=== PATIENT | female | born 1935 | race African-American/Black ===

== ENCOUNTER 2022-07-09 13:53 | Inpatient (IN) | payer MEDICARE, MEDICAID, SELFPAY ==
[2022-07-09] VITALS (26 sets, daily range): BP systolic 87–110; BP diastolic 46–77; PULSE 69–124; RESP 19–24; TEMP 36.2–37.6; O2SAT 93–100
--- NOTE | ~2022-07-09 | CT_ITS ---
EXAMINATION: CT abdomen pelvis w con DATE: 07/09/2022 16:01 INDICATION: Abdominal pain. TECHNIQUE: Computed tomography (CT) of the abdomen and pelvis was performed with 100 mL Omnipaque 350 intravenous contrast. Automated exposure control and iterative reconstruction technique were employe d. The dose-length product was 1363.43 mGy-cm. COMPARISON: None. FINDINGS: The visualized portions of the lung bases demonstrate mild atelectasis. 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 No pleural effusion. Cardiomegaly is noted. No pericardial effusion. There is mild intrahepatic biliary duct dilatation, likely secondary to cholecystectomy. The spleen, pancreas, and adrenal glands are normal. There is cortical thinning of the kidneys. There are cysts in the kidneys measuring up to 7 mm on the right. There is diffuse wall thickening of the colon, cons istent with colitis. The appendix is not visualized. There is an umbilical hernia containing nonobstr ucted small bowel. There is a left inguinal hernia containing fat. Aortic atherosclerosis is noted. T here are no pathologically enlarged lymph nodes. There is trace pelvic ascites. There is severe thora cic and lumbar spondylosis. IMPRESSION: 1. Pancolitis. 2. Umbilical hernia containing nonobstructed small bowel. Reviewed, dictated and finalized at location A.
--- NOTE | ~2022-07-09 | XR_ITS ---
Portable chest x-ray Comparison: 07/09/2022 Clinical History: PICC line placement Findings: Left-sided PICC line present, tip in the SVC. Lungs remain clear. Cardiomediastinal silho uette is stable. Bones and soft tissues are unremarkable. Impression: Left-sided PICC line in satisfactory position. Clear lungs. Reviewed, dictated and finalized at location . Impression: Left-sided PICC line in satisfactory position. Clear lungs.
--- NOTE | ~2022-07-09 | XR_ITS ---
EXAMINATION: XR chest 1V portable DATE: 07/09/2022 14:34 INDICATION: Weakness. TECHNIQUE: A single frontal view of the chest was obtained. COMPARISON: None. FINDINGS: A calcified right lung nodule is consistent with old granulomatous disease. No pneumonia, p leural effusion, or pneumothorax. The heart size is normal. IMPRESSION: 1. No acute cardiopulmonary disease. Reviewed, dictated and finalized at location A.
--- NOTE | ~2022-07-09 | XR_ITS ---
XR chest 1V portable DATE: 07/11/2022 13:58 INDICATION: Tachypnea TECHNIQUE: Portable AP chest on 07/11/2022 at 1353 hours COMPARISON: portable AP chest at 2058 hours FINDINGS: Normal heart size. Aortic arch calcification, mild aortic unfolding. No hilar or mediastina l enlargement. No pulmonary infiltrate or consolidation, pleural effusion or pulmonary vascular congestion or pneumo thorax. Left upper extremity PIC catheter tip overlies the proximal superior cavoatrial location. Diffuse idiopathic skeletal hyperostosis of the thoracic spine. IMPRESSION: No active cardiopulmonary disease Aortic calcification Left upper extremity PIC catheter Reviewed, dictated and finalized at location A.
--- NOTE | 2022-07-09 14:11 | ECG_ITS ---
Measurements Intervals [place] Rate: 101 P: SD: 0 QRS: -15 QRSD: 109 T: 26 QT: 332 QTc: 430 Interpretive Statements ATRIAL FIBRILLATION WITH RAPID VENTRICULAR RESPONSE WITH ABERRANT CONDUCTION OR VENTRICULAR PREMATURE COMPLEXES INCOMPLETE RIGHT BUNDLE BRANCH BLOCK [90+ ms QRS DURATION, TERMINAL R IN V1/V2, 40+ ms S IN I/aVL/V4/V5/V6] NONSPECIFIC ST & T-WAVE ABNORMALITY ABNORMAL RHYTHM ECG NO PREVIOUS ECG AVAILABLE FOR COMPARISON Electronically Signed On 07-09-2022 15:29:42 CDT by Jasmin Dillon M.D.
[2022-07-09] MEDS: SODIUM CHLORIDE 0.9% IV 2,000 ML 999 ML (14:22)
--- NOTE | 2022-07-09 14:22 | PC.NURSE ---
farias catheter from [facility] was switched out on arrival per Mildred HARRISON.
--- NOTE | 2022-07-09 14:24 | PC.NURSE ---
Addendum entered by Soni Shaw RN 07/09/22 16:02: 2 liters normal saline started Original Note: Normal saline bolus started per MD Iverson.
[2022-07-09 14:45] LABS: Hematocrit 33.9 % (37.0-47.0); Hemoglobin 10.5 g/dL (12.0-15.0); Mean Corpuscular Hemoglobin 31.5 pg (26-34); Mean Corpuscular Volume 101.8 fl (80-100); Platelet Count Result 477 k/mm3 (150-375); Red Blood Count 3.33 M/mm3 (4.2-5.4); Red Cell Distribution Width 15.4 % (11.5-14.5); White Blood Count 11.6 K/mm3 (4.5-10.0)
[2022-07-09 15:03] LABS: Alanine Aminotransferase 15 U/L (6-35); Albumin Level 3.1 g/dL (3.5-5.1); Alkaline Phosphatase 75 U/L (38-126); Anion Gap 13 mmol/L (8-16); Aspartate Amino Transferase 20 U/L (14-36); Bilirubin,Total 0.8 mg/dL (0.2-1.3); Blood Urea Nitrogen 17 mg/dL (7-17); Calcium 8.3 mg/dL (8.4-10.2); Carbon Dioxide 21 mmol/L (22-30); Chloride 101 mmol/L (98-107); Estimated Glomerular Filt Rate 47; Glucose 137 mg/dL (65-110); Potassium 2.2 mmol/L (3.4-5.0); Sodium 135 mmol/L (137-145)
--- NOTE | 2022-07-09 15:07 | ED.RECABL ---
HPI - Recheck/Abnormal Lab/Rx General Chief Complaint: Recheck/Abnormal Lab/Rx Stated Complaint: low potassium Time Seen by Provider: 07/09/22 15:05 Source: EMS Mode of arrival: EMS Limitations: dementia History of Present Illness HPI narrative: 86 years old -[place] female [facility] with potassium 2.2. The [facility] report that patient not eating or drinking over the last 2 to 3 days for no reason. Her daughter mentioned that the patient been having diarrhea similar to her previous history of C. difficile for the last 5 days. And the patient oriented to her name only and that is her baseline. Related Data Allergies Allergy/AdvReac Type Severity Reaction Status Date / Time acetaminophen [From [place]] Allergy Unknown Verified 07/09/22 14:13 codeine Allergy Unknown Verified 07/09/22 14:13 ferrous sulfate Allergy Unknown Verified 07/09/22 14:13 hydrocodone [From [place]] Allergy Unknown Verified 07/09/22 14:13 piroxicam Allergy Unknown Verified 07/09/22 14:13 rofecoxib Allergy Unknown Verified 07/09/22 14:13 sertraline [From [place]] Allergy Unknown Verified 07/09/22 14:13 Review of Systems Review of Systems: ROS unobtainable: Yes unobtainable due to medical condition and unobtainable due to mental status Exam Narrative: General appearance: Well-developed, well-nourished Skin: Normal color Head: Normocephalic, nontraumatic Eyes: Clear conjunctiva ENT: Oropharynx normal, ears normal, nose normal Neck: Supple, nontender Chest and respiratory: Airway patent, no respiratory distress, no accessory muscle use Heart: Irregular irregularity Abdomen: Soft, nontender, no organomegaly, quiet bowel sounds Vascular: Normal peripheral pulses, normal capillary refill. Neurologic: Alert and oriented to her name only Course Reevaluation(s) Reevaluation #1: No new changes compared to on arrival to the ED does not look in pain or distress Date: 07/09/22 Time: 15:16 Vital Signs Vital signs: Vital Signs Temperature 37.6 C 07/09/22 13:51 Pulse Rate 97 07/09/22 13:51 Respiratory Rate 21 H 07/09/22 13:51 Pulse Oximetry 99 07/09/22 13:51 Oxygen Delivery Room Air 07/09/22 13:51 Temperature 37.6 C 07/09/22 13:51 Pulse Rate 116 H 07/09/22 16:41 Respiratory Rate 19 07/09/22 16:41 Blood Pressure 104/69 07/09/22 16:41 Pulse Oximetry 100 07/09/22 16:41 Oxygen Delivery Room Air 07/09/22 13:51 MDM - Recheck/Abnormal Lab/Rx MDM Narrative Medical decision making narrative: Patient came [facility] with not eating or drinking for 8 days, diarrhea 4 days, oriented to her name only, usually go to [facility], DNR. Differential diagnosis include electrolyte imbalance, dehydration, C. difficile, sepsis, urinary tract infection Physical examination showed that the patient soiled in stool and urine with very poor hygienic condition at the pelvic area. Work-up today showed elevated white count of 11.6, potassium of 2.2, creatinine of 1.3, lactic acid 2.6, urine analysis showed urinary tract infection, chest x-ray showed no acute abnormalities, CT abdomen and pelvis with IV contrast showed pancolitis. C. difficile is a possibility, C. difficile toxigenic test ordered, patient received vancomycin 125 mg orally, FIDAXOMICIN 200 mg, Rocephin 1 g IV, potassium 40 mEq orally and IV, IV fluid of normal saline x3 L Differential Diagnosis Differential diagnosis: Likely other (Electrolyte imbalance, C. difficile, dehydration, urinary tract infection) Lab Data 07/09/22 14:24 07/09/22 14:24 Labs: Lab Results 07/09/22 07/09/22 07/09/22 Range/Units 14:24 16:15 17:
[2022-07-09 15:25] LABS: Band Neutrophils Percent 18 % (0-6); Eosinophils Absolute Manual 0.11 K/mm3 (0.02-0.5); Eosinophils Percent Manual 1 % (0-4); Lymphocytes Absolute Manual 0.69 K/mm3 (1.1-4.5); Monocytes Absolute Manual 0.46 K/mm3 (0.1-0.90); Monocytes Percent Manual 4 % (3-9); Neutrophils Absolute Manual 10.32 K/mm3 (1.7-7.2); Neutrophils Percent Manual 71 % (46-73); Total Cells Counted 100
[2022-07-09 15:26] LABS: Anisocytosis 2+ (NORMAL); Platelet Estimate Increased (Adequate); Schistocytes None Seen (NORMAL)
[2022-07-09 15:27] LABS: Hypochromasia 1+ (NORMAL)
[2022-07-09 15:29] LABS: Magnesium 1.7 mg/dL (1.6-2.3)
[2022-07-09] MEDS: POTASSIUM CHLORIDE INJ 40 MEQ in SODIUM CHLORIDE 0.9% IV 500 ML 130 MEQ IVPB ×2 (15:34→22:52)
[2022-07-09] MEDS: POTASSIUM CHLORIDE 20 MEQ TABLET 40 MEQ PO ×2 (15:38→22:37)
[2022-07-09] MEDS: SODIUM CHLORIDE 0.9% IV 1,000 ML 999 ML IV CONT (16:12)
[2022-07-09 16:55] LABS: Appearance Urine Cloudy (Clear); Bacteria Urine 2+ /hpf; Bilirubin Urine Negative (Negative); Blood Urine 2+ (Negative); Color Urine Yellow (Yellow); Glucose Urine UA Negative (Negative); Hyaline Casts Urine Present /lpf; Ketones Urine Negative (Negative); Leukocyte Esterase Ur 3+ LEU/UL (Negative); Nitrate Urine Negative (Negative); Non Pathogenic Casts >20; Protein Urine 1+ mg/dL (Negative); Specific Grav Ur 1.028 (1.001-1.035); Squamous Epithelial Cell Urine None seen /hpf (Few); Urobilinogen Urine 0.2 mg/dL (<2.0); WBC Urine 51-100 /hpf; pH Urine 5.5 (5.0-9.0)
[2022-07-09 17:00] LABS: Add Urine Microscopic? YES
[2022-07-09 17:28] LABS: Lactic Acid Reflex 2.6 mmol/L (0.7-2.0)
--- NOTE | 2022-07-09 18:19 | PC.NURSE ---
Patient got a total of 3200ml of normal saline. given part as override medications and part per order. Verified per RN Jania.
--- NOTE | 2022-07-09 18:26 | PM.IMHP ---
H&P: HPI History of Present Illness Date/Time: 07/09/22 18:26 Chief Complaint: Low potassium Narrative: this is an 86-year-old female patient who came from a local care home and [facility] The patient came to the emergency room today because she has not been eating or drinking very much over the last 2-3 days. The patient has been having diarrhea for last 5 days. The stools were comparable to the once the patient had when she had C diff. the patient is only orientated to herself. The daughter is at the bedside answering questions for Her. Her white count was noted to be 11.6. H&H is 10.5 and 33.9. MCV is 101.8. Her platelet count 477. Band neutrophils 18. Her sodium was 135 potassium 2.2. Creatinine 1.3. GFR is 47. Lactic acid was 2.6 and 2.2. The patient was found to be positive for UTI. The patient was found to be positive for C diff. The patient was started on Rocephin and Dificid. Initially the patient had been on Flagyl. The patient was started on IV fluids. She was replaced with potassium repeat potassium was nearly the same 2.4. Patient's CT scan was read as a following Pancolitis. 2. Umbilical hernia containing nonobstructed small bowel. the patient is being admitted to inpatient status on the date of service of 07/09/2022. Review of Systems Review of Systems: All systems reviewed & are unremarkable except as noted in HPI and below Constitutional: Constitutional: Reports as per HPI and Reports no additional constitutional complaints Eyes: Eyes: Reports as per HPI and Reports no additional eye complaints ENT: Reports system reviewed and no additional complaints, except as documented and Reports Normal hearing present Cardiovascular: Cardiovascular: Reports no additional cardiovascular complaints Respiratory: Respiratory: Reports no additional respiratory complaints and Reports no additional respiratory complaints Gastrointestinal: Gastrointestinal: Reports as per HPI and Reports no additional gastrointestinal complaints Musculoskeletal: Musculoskeletal: Reports no additional musculoskeletal complaints Integumentary/Breasts: Skin/Breast: Reports system reviewed and no additional complaints, except as docu and Reports as per HPI Neurologic: Reports system reviewed and no additional complaints, except as documented, Reports as per HPI and Reports Normal hearing present Psychiatric: Psychiatric: Reports no additional psychiatric complaints and Reports as per HPI Endocrine: Endocrine: Reports no additional endocrine complaints Hematologic/Lymphatic: Hematologic/Lymphatic: Reports no additional hematologic/lymphatic complaints Allergic/Immunologic: Allergic/Immunologic: Reports no additional allergic/immunologic complaints [facility] Past Medical History Medical History Anemia Atrial fibrillation BPV (benign positional vertigo) Breast cancer CHF (congestive heart failure), NYHA class I Chronic GERD CVA (cerebral vascular accident) Depression with anxiety Hyperlipidemia Hypothyroidism Surgical History Surgical History H/O mastectomy right breast H/O: hysterectomy History of appendectomy History of bilateral knee replacement Hx of cataract surgery Hx of cholecystectomy Family History Family History Mother Hypertension Father Hypertension Sibling Hypertension Daughter No problems noted. Social History Social History (Updated 07/10/22 @ 02:34 by Karla Lafleur NP) Social History: The patient recently moved into [facility]. she is and he lives there at the care home as well. She has had 6 children . 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
[2022-07-09] MEDS: SODIUM CHLORIDE 0.9% IV 1,000 ML 200 ML IV CONT (18:44)
[2022-07-09] MEDS: metroNIDAZOLE 500 MG/ISO 100ML 500 MG/100 ML BAG 100 MG IVPB (18:48)
[2022-07-09] MEDS: ACETAMINOPHEN 325 MG TABLET 650 MG PO (18:49)
--- NOTE | 2022-07-09 20:09 | ADMGEN ---
This patient, Carli Hamilton, was admitted to Medical Room 246-01. Patient/family oriented to hospital policies and general routines including ID bracelet, bed and alarms, visiting hours, pain management, procedures, bathroom and other care routines, personal items, smoking policy, room service/diet, and visiting hours. Information on how to activate the Rapid Response Team has been discussed. Patient/Family are encouraged to report perceived risks to care and to ask questions if they do not understand what they are told or what they should do.
[2022-07-09 20:12] LABS: Reflex Lactic Acid Yes or No Add Lactic
[2022-07-09 21:42] LABS: Toxigenic C. Diff POSITIVE (NEGATIVE)
[2022-07-09 21:43] LABS: Lactic Acid 2.2 mmol/L (0.7-2.0)
[2022-07-09 21:55] LABS: Anion Gap 14 mmol/L (8-16); Blood Urea Nitrogen 16 mg/dL (7-17); Calcium 7.6 mg/dL (8.4-10.2); Carbon Dioxide 14 mmol/L (22-30); Chloride 107 mmol/L (98-107); Estimated CRCL calculation 34 ml/min; Estimated Glomerular Filt Rate 47; Glucose 118 mg/dL (65-110); Potassium 2.4 mmol/L (3.4-5.0); Sodium 135 mmol/L (137-145)
[2022-07-09] MEDS: FIDAXOMICIN 200 MG TABLET PO (22:36)
[2022-07-10] VITALS (16 sets, daily range): BP systolic 90–128; BP diastolic 48–75; PULSE 66–138; RESP 16–20; TEMP 35.9–36.2; O2SAT 93–96
[2022-07-10] MEDS: SODIUM CHLORIDE 0.9% IV 1,000 ML 999 ML IV CONT (04:09)
[2022-07-10] MEDS: clonazePAM (*CRX) 0.5 MG TABLET PO ×2 (05:32→21:03)
[2022-07-10] MEDS: LEVOTHYROXINE SODIUM 50 MCG TABLET PO (05:32)
[2022-07-10 08:34] LABS: Hematocrit 34.6 % (37.0-47.0); Hemoglobin 10.5 g/dL (12.0-15.0); Mean Corpuscular HGB Conc 30.3 g/dl (32-36); Mean Corpuscular Hemoglobin 31.6 pg (26-34); Mean Corpuscular Volume 104.2 fl (80-100); Mean Platelet Volume 8.8 fl (7.4-10.4); Platelet Count Result 476 k/mm3 (150-375); Red Blood Count 3.32 M/mm3 (4.2-5.4); Red Cell Distribution Width 15.9 % (11.5-14.5); White Blood Count 21.9 K/mm3 (4.5-10.0)
--- NOTE | 2022-07-10 08:40 | P.PNIM_ITS ---
Progress Note: A&P Assessment and Plan (1) Sepsis: Qualifiers: Sepsis type: sepsis due to unspecified organism Sepsis acute organ dysfunction status: with acute organ dysfunction Severe sepsis acute organ dysfunction type: encephalopathy Severe sepsis shock status: without septic shock Qualified Code(s): A41.9 - Sepsis, unspecified organism; R65.20 - Severe sepsis without septic shock; G93.40 - Encephalopathy, unspecified Code(s): A41.9 - Sepsis, unspecified organism Status: Acute Assessment and Plan: Patient presented to the hospital and was noted to be tachycardic, BP 87/47, WBC 11.6-21.9, lactic acid 2.6, pancolitis evident on CT abdomen and pelvis and UA is concerning for UTI. Patient meets criteria for sepsis. * Patient given approximately 3 L of IV fluids in the ED and continued on maintenance fluids * Monitor hemodynamics * Continue antibiotics for C diff colitis and UTI * Repeat lactic acid 2.2 * Monitor CBC and temperature curve (2) C. difficile colitis: Code(s): A04.72 - Enterocolitis due to Clostridium difficile, not specified as recurrent Status: Acute Assessment and Plan: Patient presented to the emergency department for evaluation diarrhea x5 days. Patient has history of C diff colitis in April of this year and was treated with 10 days of vancomycin. * CT abdomen and pelvis on admission showed pancolitis. * C diff was positive * Initiated on dificid 200 mg p.o. b.i.d. times 10 days, 1st dose 6/2 at 10:00 p.m. * Contact isolation * Continue IV fluids and supplement electrolytes as needed * Monitor intake and output (3) Atrial fibrillation: Qualifiers: Atrial fibrillation type: persistent (not longstanding) Qualified Code(s): I48.19 - Other persistent atrial fibrillation Code(s): I48.91 - Unspecified atrial fibrillation Status: Acute Assessment and Plan: Patient reportedly diagnosed with AFib approximately 1 month ago. She is typically rate controlled off medications. * Patient is noted to be in AFib with heart rate 100 to 120s, she has nonsustained heart rate up to 130s with activity. I suspect this may be secondary to sepsis. * Monitor telemetry. * Add p.r.n. metoprolol 5 mg IV q.6 hours for sustained heart rate greater than 130s. * Monitor patient's volume status and prevent hyper or hypovolemia. * Obtain patient's records from [facility] from most recent hospitalization. Family reports patient had an echocardiogram recently and were told by her product representative her heart muscle was strong * Consider consulting Cardiology if heart rate remains elevated despite adequate infection control * Continue Eliquis (4) ARF (acute renal failure): Qualifiers: Acute renal failure type: unspecified Qualified Code(s): N17.9 - Acute kidney failure, unspecified Code(s): N17.9 - Acute kidney failure, unspecified Status: Acute Assessment and Plan: Acute versus acute on chronic kidney disease. BUN 17, creatinine 1.3, GFR 47 on admission. * Patient has had diarrhea for approximately 5 days with poor oral intake and this is likely pre renal * hold Diamox and Lasix * Continue gentle IV hydration. * He monitor intake and output and avoid hypervolemia * Daily BMP (5) Acute hypokalemia: Code(s): E87.6 - Hypokalemia Status: Acute Assessment and Plan: Potassium was 2.2 on admission and patient given 40 mEq p.o. KCl and 40 mEq IV KCl in the ED. * Repeat potassium 2.4 later that evening. And she was given additional dose o
--- NOTE | 2022-07-10 08:40 | PM.IMPN ---
Progress Note: A&P Assessment and Plan (1) Sepsis: Qualifiers: Sepsis type: sepsis due to unspecified organism Sepsis acute organ dysfunction status: with acute organ dysfunction Severe sepsis acute organ dysfunction type: encephalopathy Severe sepsis shock status: without septic shock Qualified Code(s): A41.9 - Sepsis, unspecified organism; R65.20 - Severe sepsis without septic shock; G93.40 - Encephalopathy, unspecified Code(s): A41.9 - Sepsis, unspecified organism Status: Acute Assessment and Plan: Patient presented to the hospital and was noted to be tachycardic, BP 87/47, WBC 11.6-21.9, lactic acid 2.6, pancolitis evident on CT abdomen and pelvis and UA is concerning for UTI. Patient meets criteria for sepsis. Patient given approximately 3 L of IV fluids in the ED and continued on maintenance fluids Monitor hemodynamics Continue antibiotics for C diff colitis and UTI Repeat lactic acid 2.2 Monitor CBC and temperature curve (2) C. difficile colitis: Code(s): A04.72 - Enterocolitis due to Clostridium difficile, not specified as recurrent Status: Acute Assessment and Plan: Patient presented to the emergency department for evaluation diarrhea x5 days. Patient has history of C diff colitis in April of this year and was treated with [address] abdomen and pelvis on admission showed pancolitis. C diff was positive Initiated on dificid 200 mg p.o. b.i.d. times 10 days, 1st dose 6/2 at 10:00 p.m. Contact isolation Continue IV fluids and supplement electrolytes as needed Monitor intake and output (3) Atrial fibrillation: Qualifiers: Atrial fibrillation type: persistent (not longstanding) Qualified Code(s): I48.19 - Other persistent atrial fibrillation Code(s): I48.91 - Unspecified atrial fibrillation Status: Acute Assessment and Plan: Patient reportedly diagnosed with AFib approximately 1 month ago. She is typically rate controlled off medications. Patient is noted to be in AFib with heart rate 100 to 120s, she has nonsustained heart rate up to 130s with activity. I suspect this may be secondary to sepsis. Monitor telemetry. Add p.r.n. metoprolol 5 mg IV q.6 hours for sustained heart rate greater than 130s. Monitor patient's volume status and prevent hyper or hypovolemia. Obtain patient's records from [facility] from most recent hospitalization. Family reports patient had an echocardiogram recently and were told by her assistant research scientist her heart muscle was strong Consider consulting Cardiology if heart rate remains elevated despite adequate infection control Continue Eliquis (4) ARF (acute renal failure): Qualifiers: Acute renal failure type: unspecified Qualified Code(s): N17.9 - Acute kidney failure, unspecified Code(s): N17.9 - Acute kidney failure, unspecified Status: Acute Assessment and Plan: Acute versus acute on chronic kidney disease. BUN 17, creatinine 1.3, GFR 47 on admission. Patient has had diarrhea for approximately 5 days with poor oral intake and this is likely pre renal hold Diamox and Lasix Continue gentle IV hydration. He monitor intake and output and avoid hypervolemia Daily BMP (5) Acute hypokalemia: Code(s): E87.6 - Hypokalemia Status: Acute Assessment and Plan: Potassium was 2.2 on admission and patient given 40 mEq p.o. KCl and 40 mEq IV KCl in the ED. Repeat potassium 2.4 later that evening. And she was given additional dose of KCl 40 mEq p.o. and 40 mEq IV yesterday evening. Patient started on a potassium supplement 40 mEq use p.o. b.i.d. /3 magnesium level 1.5 and supplemented with IV Mag sulfate 3 g x 1. Potassium 4.2 today Monitor telemetry Continue electrolytes and supplement as needed (6) UTI (urinary tract infection): Code(s): N39.0 - Urinary tract infection, site not specified Sta
[2022-07-10 09:01] LABS: Alanine Aminotransferase 14 U/L (6-35); Albumin Level 2.3 g/dL (3.5-5.1); Alkaline Phosphatase 55 U/L (38-126); Anion Gap 9 mmol/L (8-16); Aspartate Amino Transferase 20 U/L (14-36); Bilirubin,Total 0.7 mg/dL (0.2-1.3); Blood Urea Nitrogen 18 mg/dL (7-17); Calcium 7.7 mg/dL (8.4-10.2); Carbon Dioxide 17 mmol/L (22-30); Chloride 112 mmol/L (98-107); Estimated CRCL calculation 31 ml/min; Estimated Glomerular Filt Rate 43; Glucose 100 mg/dL (65-110); Magnesium 1.5 mg/dL (1.6-2.3); Potassium 4.2 mmol/L (3.4-5.0); Sodium 138 mmol/L (137-145)
[2022-07-10] MEDS: FERROUS SULFATE 324 MG TABLET PO ×2 (10:03→17:18)
[2022-07-10] MEDS: ATORVASTATIN 20 MG TABLET PO (10:03)
[2022-07-10] MEDS: POTASSIUM CHLORIDE 20 MEQ TABLET.ER 40 MEQ PO ×2 (10:03→17:18)
[2022-07-10] MEDS: ASPIRIN 81 MG ENTERIC TABLET PO (10:03)
[2022-07-10] MEDS: APIXABAN 5 MG TABLET PO ×2 (10:03→21:05)
[2022-07-10] MEDS: ASCORBIC ACID 500 MG TABLET 1000 MG PO (10:03)
[2022-07-10] MEDS: FLUTICASONE PROPIONATE 0.05% NA SPR 16 GM BTL (*BKC) 2 SPRAY NASAL (10:04)
[2022-07-10] MEDS: CHOLECALCIFEROL 1,000 UNITS TABLET 1000 UNITS PO (10:04)
[2022-07-10] MEDS: CYANOCOBALAMIN 1,000 MCG TABLET 2000 MCG PO (10:04)
[2022-07-10] MEDS: FAMOTIDINE 20 MG/2 ML VIAL IV PUSH ×2 (10:04→21:05)
[2022-07-10] MEDS: oxyBUTYnin CHLORIDE 5 MG TABLET PO ×2 (10:04→17:17)
[2022-07-10] MEDS: CLOPIDOGREL BISULFATE 75 MG TABLET PO (10:04)
[2022-07-10] MEDS: MAGNESIUM SULFATE 3GM/D5W100ML 3 GM/100 ML BAG IVPB (10:05)
[2022-07-10] MEDS: LIDOCAINE 5% PATCH 1 PATCH TOPICAL (10:05)
[2022-07-10] MEDS: FIDAXOMICIN 200 MG TABLET PO ×2 (10:06→21:05)
[2022-07-10 11:17] LABS: Band Neutrophils Percent 48 % (0-6); Lymphocytes Absolute Manual 0.21 K/mm3 (1.1-4.5); Metamyelocytes Percent 2 %; Monocytes Absolute Manual 0.87 K/mm3 (0.1-0.90); Monocytes Percent Manual 4 % (3-9); Neutrophils Absolute Manual 20.36 K/mm3 (1.7-7.2); Neutrophils Percent Manual 45 % (46-73); Total Cells Counted 100
--- NOTE | 2022-07-10 11:18 | PC.NURSE ---
Faxed paperwork to obtain medical records from [facility].
[2022-07-10 11:19] LABS: Platelet Estimate Increased (Adequate)
[2022-07-10 11:20] LABS: Schistocytes None Seen (NORMAL); Toxic Granulation Present (NORMAL)
[2022-07-10 11:21] LABS: Burr Cells 3+ (NORMAL)
[2022-07-10] MEDS: SODIUM CHLORIDE 0.9% IV 1,000 ML 75 ML IV CONT ×2 (15:33→21:04)
[2022-07-10] MEDS: METOPROLOL TARTRATE INJ 5 MG/5 ML VIAL IV PUSH (15:33)
[2022-07-10] MEDS: ACETAMINOPHEN 325 MG TABLET 650 MG PO (21:03)
[2022-07-10] MEDS: LATANOPROST 0.005% OP SOLN 2.5 ML BTL 1 DROP EACH EYE (21:06)
[2022-07-10 22:56] LABS: Anion Gap 11 mmol/L (8-16); Blood Urea Nitrogen 23 mg/dL (7-17); Calcium 7.7 mg/dL (8.4-10.2); Carbon Dioxide 14 mmol/L (22-30); Chloride 114 mmol/L (98-107); Estimated CRCL calculation 22 ml/min; Estimated Glomerular Filt Rate 29; Glucose 128 mg/dL (65-110); Sodium 139 mmol/L (137-145)
[2022-07-10 23:53] LABS: Procalcitonin 63.2 ng/mL
[2022-07-11] VITALS (12 sets, daily range): BP systolic 101–125; BP diastolic 47–87; PULSE 50–133; RESP 16–24; TEMP 36.1–36.6; O2SAT 93–98
[2022-07-11] MEDS: LEVOTHYROXINE SODIUM 50 MCG TABLET PO (05:20)
[2022-07-11] MEDS: METOPROLOL TARTRATE INJ 5 MG/5 ML VIAL IV PUSH (05:20)
[2022-07-11] MEDS: SODIUM CHLORIDE 0.9% IV 1,000 ML 75 ML IV CONT (05:20)
[2022-07-11 05:33] LABS: Hematocrit 33.7 % (37.0-47.0); Hemoglobin 10.5 g/dL (12.0-15.0); Mean Corpuscular HGB Conc 31.2 g/dl (32-36); Mean Corpuscular Hemoglobin 31.3 pg (26-34); Mean Corpuscular Volume 100.3 fl (80-100); Mean Platelet Volume 8.7 fl (7.4-10.4); Platelet Count Result 460 k/mm3 (150-375); Red Blood Count 3.36 M/mm3 (4.2-5.4); Red Cell Distribution Width 15.9 % (11.5-14.5); White Blood Count 26.7 K/mm3 (4.5-10.0)
[2022-07-11 05:40] LABS: Alanine Aminotransferase 12 U/L (6-35); Albumin Level 2.4 g/dL (3.5-5.1); Alkaline Phosphatase 81 U/L (38-126); Anion Gap 10 mmol/L (8-16); Aspartate Amino Transferase 22 U/L (14-36); Bilirubin,Total 0.4 mg/dL (0.2-1.3); Blood Urea Nitrogen 25 mg/dL (7-17); Calcium 7.9 mg/dL (8.4-10.2); Carbon Dioxide 16 mmol/L (22-30); Chloride 116 mmol/L (98-107); Estimated CRCL calculation 20 ml/min; Estimated Glomerular Filt Rate 26; Glucose 126 mg/dL (65-110); Magnesium 2.2 mg/dL (1.6-2.3); Sodium 142 mmol/L (137-145)
[2022-07-11 05:43] LABS: NT Pro B Type Natriuretic Pept 12700 pg/mL (19.9-100)
[2022-07-11 06:10] LABS: Band Neutrophils Percent 11 % (0-6); Lymphocytes Absolute Manual 1.06 K/mm3 (1.1-4.5); Monocytes Absolute Manual 1.06 K/mm3 (0.1-0.90); Monocytes Percent Manual 4 % (3-9); Neutrophils Absolute Manual 24.56 K/mm3 (1.7-7.2); Neutrophils Percent Manual 81 % (46-73); Platelet Estimate Adequate (Adequate); Schistocytes None Seen (NORMAL); Total Cells Counted 100
[2022-07-11 06:11] LABS: Crenated RBC 1+ (NORMAL); Poikilocytosis 1+ (NORMAL)
[2022-07-11 06:36] LABS: CRP 31.1 mg/dL (<1.0)
[2022-07-11] MEDS: APIXABAN 5 MG TABLET PO ×2 (08:17→20:33)
[2022-07-11] MEDS: oxyBUTYnin CHLORIDE 5 MG TABLET PO ×2 (08:17→18:25)
[2022-07-11] MEDS: FIDAXOMICIN 200 MG TABLET PO ×2 (08:17→20:33)
[2022-07-11] MEDS: POTASSIUM CHLORIDE 20 MEQ TABLET.ER 40 MEQ PO ×2 (08:17→18:25)
[2022-07-11] MEDS: CHOLECALCIFEROL 1,000 UNITS TABLET 1000 UNITS PO (08:17)
[2022-07-11] MEDS: FAMOTIDINE 20 MG/2 ML VIAL IV PUSH ×2 (08:17→20:33)
[2022-07-11] MEDS: CYANOCOBALAMIN 1,000 MCG TABLET 2000 MCG PO (08:17)
[2022-07-11] MEDS: FERROUS SULFATE 324 MG TABLET PO ×2 (08:17→18:25)
[2022-07-11] MEDS: ATORVASTATIN 20 MG TABLET PO (08:17)
[2022-07-11] MEDS: FLUTICASONE PROPIONATE 0.05% NA SPR 16 GM BTL (*BKC) 2 SPRAY NASAL (08:17)
[2022-07-11] MEDS: ASCORBIC ACID 500 MG TABLET 1000 MG PO (08:17)
[2022-07-11] MEDS: CLOPIDOGREL BISULFATE 75 MG TABLET PO (08:17)
[2022-07-11] MEDS: ASPIRIN 81 MG ENTERIC TABLET PO (08:17)
[2022-07-11] MEDS: LIDOCAINE 5% PATCH 1 PATCH TOPICAL (08:50)
--- NOTE | 2022-07-11 09:28 | P.PNIM_ITS ---
Progress Note: A&P Assessment and Plan (1) Sepsis: Qualifiers: Sepsis acute organ dysfunction status: with acute organ dysfunction Sepsis type: sepsis due to unspecified organism Severe sepsis acute organ dysfunction type: encephalopathy Severe sepsis shock status: without septic shock Qualified Code(s): A41.9 - Sepsis, unspecified organism; R65.20 - Severe sepsis without septic shock; G93.40 - Encephalopathy, unspecified Code(s): A41.9 - Sepsis, unspecified organism Status: Acute Assessment and Plan: Patient presented to the hospital and was noted to be tachycardic, BP 87/47, WBC 11.6-21.9, lactic acid 2.6, pancolitis evident on CT abdomen and pelvis and UA is concerning for UTI. Patient meets criteria for sepsis. * Patient given approximately 3 L of IV fluids in the ED and continued on maintenance fluids * Monitor hemodynamics * Continue antibiotics for C diff colitis and UTI * Repeat lactic acid 2.2; 07/11/22 lactic acid 1.4 * Monitor CBC and temperature curve * 07/11/22 WBC 26, up from 11 on admission. Urine culture with ESBL e.coli. Antibiotics changed. SMITH present. (2) C. difficile colitis: Code(s): A04.72 - Enterocolitis due to Clostridium difficile, not specified as recurrent Status: Acute Assessment and Plan: Patient presented to the emergency department for evaluation diarrhea x5 days. Patient has history of C diff colitis in April of this year and was treated with 10 days of vancomycin. * CT abdomen and pelvis on admission showed pancolitis. * C diff was positive * Initiated dificid 200 mg p.o. b.i.d. times 10 days, 1st dose 07/09 at 10:00 p.m. * Contact isolation * Continue IV fluids and supplement electrolytes as needed * Monitor intake and output * 07/11/22 WBC 26 and patient with significant abd pain on exam. Unclear if worsening leukocytosis is from cdiff colitis versus ESBL UTI. Add Metronidazole 500 mg IV Q8 hours. (3) Atrial fibrillation: Qualifiers: Atrial fibrillation type: persistent (not longstanding) Qualified Code(s): I48.19 - Other persistent atrial fibrillation Code(s): I48.91 - Unspecified atrial fibrillation Status: Acute Assessment and Plan: Patient reportedly diagnosed with AFib approximately 1 month ago. She is typically rate controlled off medications. * Patient is noted to be in AFib with heart rate 100 to 120s, she has nonsustained heart rate up to 130s with activity. I suspect this may be secondary to sepsis. * Monitor telemetry. * Add p.r.n. metoprolol 5 mg IV q.6 hours for sustained heart rate greater than 130s. * Monitor patient's volume status and prevent hyper or hypovolemia. * Obtain patient's records from [facility] from most recent hospitalization. Family reports patient had an echocardiogram recently and were told by her automatic door mechanic her heart muscle was strong * Consider consulting Cardiology if heart rate remains elevated despite adequate infection control * Continue Eliquis * Continue to manage sepsis and acute infections. HR 100-110s (4) ARF (acute renal failure): Qualifiers: Acute renal failure type: unspecified Qualified Code(s): N17.9 - Acute kidney failure, unspecified Code(s): N17.9 - Acute kidney failure, unspecified Status: Acute Assessment and Plan: Acute versus acute on chronic kidney disease. BUN 17, creatinine 1.3, GFR 47 on admission. * Patient has had diarrhea for approximately 5 days with poor oral intake and this is likely pre renal * holding Diamox and Lasix * Treated with IV hydration. * He monitor
--- NOTE | 2022-07-11 09:28 | PM.IMPN ---
Progress Note: A&P Assessment and Plan (1) Sepsis: Qualifiers: Sepsis acute organ dysfunction status: with acute organ dysfunction Sepsis type: sepsis due to unspecified organism Severe sepsis acute organ dysfunction type: encephalopathy Severe sepsis shock status: without septic shock Qualified Code(s): A41.9 - Sepsis, unspecified organism; R65.20 - Severe sepsis without septic shock; G93.40 - Encephalopathy, unspecified Code(s): A41.9 - Sepsis, unspecified organism Status: Acute Assessment and Plan: Patient presented to the hospital and was noted to be tachycardic, BP 87/47, WBC 11.6-21.9, lactic acid 2.6, pancolitis evident on CT abdomen and pelvis and UA is concerning for UTI. Patient meets criteria for sepsis. Patient given approximately 3 L of IV fluids in the ED and continued on maintenance fluids Monitor hemodynamics Continue antibiotics for C diff colitis and UTI Repeat lactic acid 2.2; 07/11/22 lactic acid 1.4 Monitor CBC and temperature curve 07/11/22 WBC 26, up from 11 on admission. Urine culture with ESBL e.coli. Antibiotics changed. SMITH present. (2) C. difficile colitis: Code(s): A04.72 - Enterocolitis due to Clostridium difficile, not specified as recurrent Status: Acute Assessment and Plan: Patient presented to the emergency department for evaluation diarrhea x5 days. Patient has history of C diff colitis in April of this year and was treated with [address] abdomen and pelvis on admission showed pancolitis. C diff was positive Initiated dificid 200 mg p.o. b.i.d. times 10 days, 1st dose 2 at 10:00 p.m. Contact isolation Continue IV fluids and supplement electrolytes as needed Monitor intake and output 07/11/22 WBC 26 and patient with significant abd pain on exam. Unclear if worsening leukocytosis is from cdiff colitis versus ESBL UTI. Add Metronidazole 500 mg IV Q8 hours. (3) Atrial fibrillation: Qualifiers: Atrial fibrillation type: persistent (not longstanding) Qualified Code(s): I48.19 - Other persistent atrial fibrillation Code(s): I48.91 - Unspecified atrial fibrillation Status: Acute Assessment and Plan: Patient reportedly diagnosed with AFib approximately 1 month ago. She is typically rate controlled off medications. Patient is noted to be in AFib with heart rate 100 to 120s, she has nonsustained heart rate up to 130s with activity. I suspect this may be secondary to sepsis. Monitor telemetry. Add p.r.n. metoprolol 5 mg IV q.6 hours for sustained heart rate greater than 130s. Monitor patient's volume status and prevent hyper or hypovolemia. Obtain patient's records from [facility] from most recent hospitalization. Family reports patient had an echocardiogram recently and were told by her powderer her heart muscle was strong Consider consulting Cardiology if heart rate remains elevated despite adequate infection control Continue Eliquis Continue to manage sepsis and acute infections. HR 100-110s (4) ARF (acute renal failure): Qualifiers: Acute renal failure type: unspecified Qualified Code(s): N17.9 - Acute kidney failure, unspecified Code(s): N17.9 - Acute kidney failure, unspecified Status: Acute Assessment and Plan: Acute versus acute on chronic kidney disease. BUN 17, creatinine 1.3, GFR 47 on admission. Patient has had diarrhea for approximately 5 days with poor oral intake and this is likely pre renal holding Diamox and Lasix Treated with IV hydration. He monitor intake and output and avoid hypervolemia Daily BMP 07/11/22 BUN 27, creatinine 2.5, GFR 22 and with oliguria. IV contrast study given 07/09/22 and patient has multiple acute infections. ABG shows acute primary metabolic acidosis. Start bicarb drip 150 mEQ in sterile water @75 mL/hour Consult nephrology and appreciate recommendations. (5) Acute hypokalemia: Cod
[2022-07-11] MEDS: FUROSEMIDE INJ 40 MG/4 ML VIAL 20 MG IV PUSH (10:19)
--- NOTE | 2022-07-11 10:56 | PCSTNOTE ---
Bedside swallow evaluation attempted this morning. Pt. lethargic, but aroused to name and gentle touch. Pt. opened eyes briefly, but did not maintain throughout the attempted study. Pt. would provide inconsistent responses to simple questions while eyes remaining closed. She was amenable to being seated in an upright position to proceed with the study. Pt. participated in trials of thin liquids via straw without complication. She displayed a limited ability to form a labial seal for open cup thin liquid trials, which was evidenced by anterior leakage and spill. She displayed limited oral awareness during a puree trial attempt and the evaluation was terminated. Spoke with nursing regarding pt.'s limited ability to participate at this time. ST will attempt on 07/12/22 when pt. is more alert and able to participate fully in the bedside swallow evaluation.
[2022-07-11] MEDS: MEROPENEM 1 GM in SODIUM CHLORIDE 0.9% IV 100 ML 200 ML IVPB ×2 (11:57→23:00)
--- NOTE | 2022-07-11 13:15 | PC.NURSE ---
Called Sandra and left name and call back number to discuss patient condition
[2022-07-11 13:55] LABS: Alveolar/Arterial O2 Gradient 71.5 mmHg; Base Excess ABG -9.7 mEq/l (+/-2.0); Carboxyhemoglobin 0.3 % THb (0-2.0); Fractional Inspired Oxygen 32 %; HCO3 ABG 13.7 mEq/l (22.0-26.0); Methemoglobin ABG 0.4 %THb (0-1.5); Oxygen Content ABG 16.1 %vol (16.0-22.0); Oxygen Saturation ABG 98.6 % (95.0-100.0); Oxyhemoglobin 97.2 % THb (90.0-100.0); PO2 ABG 128.8 mmHg (80.0-100.0); PO2 FiO2 Ratio Arterial Blood 4.03 %; Reduced Hemoglobin 2.1 %THb (0-5.0); Total Hemoglobin 11.6 g/dL (12.0-18.0); pH ABG 7.379 (7.350-7.450)
[2022-07-11 13:57] LABS: Device NASAL CANNULA; Modified Allen's Test Pass; PCO2 ABG 23.8 mmHg (35.0-45.0); Site Drawn RIGHT RADIAL
[2022-07-11] MEDS: SODIUM CHLORIDE 0.9% IV 1,000 ML 250 ML IV CONT (13:57)
[2022-07-11] MEDS: CENTRAL LINE FLUSH 10 ML IV PUSH (13:57)
--- NOTE | 2022-07-11 14:40 | PM.CNNEP ---
Assessment and Plan Assessment and plan (1) SMITH (acute kidney injury): Code(s): N17.9 - Acute kidney failure, unspecified Status: Acute Assessment and Plan: per discussion with daughters, no reported history of renal insufficiency however, given her age and vascular disease (CVA + hyperlipidemia + CHF), she probably has some CKD at baseline (even if her creatinine is normal at baseline) multifactorial: approximately 5 days of diarrhea associated with poor oral intake likely exacerbated by ongoing use of diuretic therapy (diamox and lasix) also, contrast exposure of 6/2 (CT of abdomen) relative hypotension afib (?) check urine electrolytes, urine eosinophils, renal ultrasound, and CPK holding diuretic therapy agree with trial of IVFs given acidosis, seems reasonable to add bicarb to IVF follow repeat labs and UOP (2) Sepsis: Qualifiers: Sepsis acute organ dysfunction status: with acute organ dysfunction Sepsis type: sepsis due to unspecified organism Severe sepsis acute organ dysfunction type: encephalopathy Severe sepsis shock status: without septic shock Qualified Code(s): A41.9 - Sepsis, unspecified organism; R65.20 - Severe sepsis without septic shock; G93.40 - Encephalopathy, unspecified Code(s): A41.9 - Sepsis, unspecified organism Status: Acute Assessment and Plan: as noted on presentation -- tachycardia, hypotension, lactic acidosis, leukocytosis sources felt to be #3 and #4 better hemodynamics following IVF resuscitation lactic acid downtrending continue IVFs for now continue antibiotic therapy follow trend of hemodynamics (3) C. difficile colitis: Code(s): A04.72 - Enterocolitis due to Clostridium difficile, not specified as recurrent Status: Acute Assessment and Plan: CT abdomen and pelvis on admission showed pancolitis C diff toxin assay positive initiated dificid 200 mg p.o. b.i.d. with recent addition of metronidazole contact isolation supportive therapy (4) UTI (urinary tract infection): Code(s): N39.0 - Urinary tract infection, site not specified Status: Acute Assessment and Plan: admission UA with 3+ leukocyte esterase, WBCs, 2+ bacteria in association with dysuria urine culture with EBSL E.coli follow blood cultures on antibiotics (5) Atrial fibrillation: Qualifiers: Atrial fibrillation type: persistent (not longstanding) Qualified Code(s): I48.19 - Other persistent atrial fibrillation Code(s): I48.91 - Unspecified atrial fibrillation Status: Acute Assessment and Plan: diagnosed about a month ago continue rate control strategy on anticoagulation follow telemetry (6) Hypokalemia: Code(s): E87.6 - Hypokalemia Status: Acute Assessment and Plan: resolved follow trend of K+ levels (7) CHF (congestive heart failure): Code(s): I50.9 - Heart failure, unspecified Status: Acute Assessment and Plan: recent hospitalization for this records requested volume status stable follow respiratory status with IVFs I had a long and lengthy discussion (greater than 25 minutes) with the patient's daughter/POA by phone regarding the above issues including her acute kidney injury/acute renal failure and the testing that has been ordered as well as other interventions being done trying to get the patient's kidney function back to baseline. I will continue to follow the patient with you while she remains hospitalized and make further recommendations as deemed necessary. Thank you for allowing me to participate in the care this patient. History of Present Illness Reason for Consult Consult date: 07/11/22 Reason for consult: acute renal failure Chief Complaint Chief complaint: pancolitis, hypokalemia, diarrhea, uti History of Present Illness Narrative: Most of the information that I have obtained is f
--- NOTE | 2022-07-11 14:40 | P.CONNP_ITS ---
Assessment and Plan Assessment and plan (1) SMITH (acute kidney injury): Code(s): N17.9 - Acute kidney failure, unspecified Status: Acute Assessment and Plan: * per discussion with daughters, no reported history of renal insufficiency * however, given her age and vascular disease (CVA + hyperlipidemia + CHF), she probably has some CKD at baseline (even if her creatinine is normal at baseline) * multifactorial: * approximately 5 days of diarrhea * associated with poor oral intake * likely exacerbated by ongoing use of diuretic therapy (diamox and lasix) * also, contrast exposure of 07/09 (CT of abdomen) * relative hypotension * afib (?) * check urine electrolytes, urine eosinophils, renal ultrasound, and CPK * holding diuretic therapy * agree with trial of IVFs * given acidosis, seems reasonable to add bicarb to IVF * follow repeat labs and UOP (2) Sepsis: Qualifiers: Sepsis acute organ dysfunction status: with acute organ dysfunction Sepsis type: sepsis due to unspecified organism Severe sepsis acute organ dysfunction type: encephalopathy Severe sepsis shock status: without septic shock Qualified Code(s): A41.9 - Sepsis, unspecified organism; R65.20 - Severe sepsis without septic shock; G93.40 - Encephalopathy, unspecified Code(s): A41.9 - Sepsis, unspecified organism Status: Acute Assessment and Plan: * as noted on presentation -- tachycardia, hypotension, lactic acidosis, leukocytosis * sources felt to be #3 and #4 * better hemodynamics following IVF resuscitation * lactic acid downtrending * continue IVFs for now * continue antibiotic therapy * follow trend of hemodynamics (3) C. difficile colitis: Code(s): A04.72 - Enterocolitis due to Clostridium difficile, not specified as recurrent Status: Acute Assessment and Plan: * CT abdomen and pelvis on admission showed pancolitis * C diff toxin assay positive * initiated dificid 200 mg p.o. b.i.d. with recent addition of metronidazole * contact isolation * supportive therapy (4) UTI (urinary tract infection): Code(s): N39.0 - Urinary tract infection, site not specified Status: Acute Assessment and Plan: * admission UA with 3+ leukocyte esterase, WBCs, 2+ bacteria in association with dysuria * urine culture with EBSL E.coli * follow blood cultures * on antibiotics (5) Atrial fibrillation: Qualifiers: Atrial fibrillation type: persistent (not longstanding) Qualified Code(s): I48.19 - Other persistent atrial fibrillation Code(s): I48.91 - Unspecified atrial fibrillation Status: Acute Assessment and Plan: * diagnosed about a month ago * continue rate control strategy * on anticoagulation * follow telemetry (6) Hypokalemia: Code(s): E87.6 - Hypokalemia Status: Acute Assessment and Plan: * resolved * follow trend of K+ levels (7) CHF (congestive heart failure): Code(s): I50.9 - Heart failure, unspecified Status: Acute Assessment and Plan: * recent hospitalization for this * records requested * volume status stable * follow respiratory status with IVFs I had a long and lengthy discussion (greater than 25 minutes) with the patient's daughter/POA by phone regarding the above issues including her acute kidney injury/acute renal failure and the testing that has been ordered as well as other interventions being done trying to get the patient's kidney function back to baseline. I will con
[2022-07-11 15:15] LABS: Alanine Aminotransferase 12 U/L (6-35); Albumin Level 2.4 g/dL (3.5-5.1); Alkaline Phosphatase 96 U/L (38-126); Anion Gap 10 mmol/L (8-16); Aspartate Amino Transferase 15 U/L (14-36); Bilirubin,Total 0.4 mg/dL (0.2-1.3); Blood Urea Nitrogen 27 mg/dL (7-17); Carbon Dioxide 16 mmol/L (22-30); Chloride 117 mmol/L (98-107); Estimated CRCL calculation 17 ml/min; Estimated Glomerular Filt Rate 22; Glucose 114 mg/dL (65-110); Lactic Acid Reflex 1.4 mmol/L (0.7-2.0); Potassium 3.9 mmol/L (3.4-5.0); Sodium 143 mmol/L (137-145)
[2022-07-11] MEDS: SODIUM BICARBONATE 8.4% 150 MEQ in WATER, STERILE FOR INJECTION 950 ML 75 MEQ IV CONT (16:16)
[2022-07-11 17:37] LABS: Creatinine Urine 155.1 mg/dL; Creatinine Urine 155.5 mg/dL; Total Protein Urine Random 34 mg/dL; Ur Ttl Prot Creatinine Ratio 0.22 mg/mg (0-0.20); Urea Random Urine 120 MG/DL
[2022-07-11 17:53] LABS: Eosinophil Urine None Seen % (None Seen); Urine Eos QC 2nd Tech Confirmed
[2022-07-11] MEDS: metroNIDAZOLE 500 MG/ISO 100ML 500 MG/100 ML BAG 100 MG IVPB (18:24)
[2022-07-11] MEDS: ACETAMINOPHEN 325 MG TABLET 650 MG PO (18:36)
[2022-07-11 19:30] LABS: Sodium Urine Random 9 meq/L
[2022-07-11] MEDS: LATANOPROST 0.005% OP SOLN 2.5 ML BTL 1 DROP EACH EYE (20:33)
[2022-07-11] MEDS: clonazePAM (*CRX) 0.5 MG TABLET PO (20:33)
[2022-07-11] MEDS: WATER FOR IRRIGATION, STERILE 1,000 ML BOTTLE 1000 ML (22:25)
[2022-07-12] VITALS (7 sets, daily range): BP systolic 98–129; BP diastolic 51–78; PULSE 75–120; RESP 18–20; TEMP 36–36.8; O2SAT 87–100
[2022-07-12] MEDS: CENTRAL LINE FLUSH 10 ML IV PUSH ×3 (02:26→14:29)
[2022-07-12] MEDS: metroNIDAZOLE 500 MG/ISO 100ML 500 MG/100 ML BAG 100 MG IVPB ×2 (02:30→10:23)
[2022-07-12 05:40] LABS: Hematocrit 27.5 % (37.0-47.0); Hemoglobin 8.7 g/dL (12.0-15.0); Mean Corpuscular HGB Conc 31.6 g/dl (32-36); Mean Corpuscular Hemoglobin 30.7 pg (26-34); Mean Corpuscular Volume 97.2 fl (80-100); Mean Platelet Volume 8.4 fl (7.4-10.4); Platelet Count Result 360 k/mm3 (150-375); Red Blood Count 2.83 M/mm3 (4.2-5.4); Red Cell Distribution Width 16.4 % (11.5-14.5)
[2022-07-12] MEDS: LEVOTHYROXINE SODIUM 50 MCG TABLET PO (05:42)
[2022-07-12 05:52] LABS: Alanine Aminotransferase 11 U/L (6-35); Albumin Level 2.2 g/dL (3.5-5.1); Alkaline Phosphatase 89 U/L (38-126); Anion Gap 4 mmol/L (8-16); Aspartate Amino Transferase 20 U/L (14-36); Bilirubin,Total 0.4 mg/dL (0.2-1.3); Blood Urea Nitrogen 29 mg/dL (7-17); Calcium 7.5 mg/dL (8.4-10.2); Carbon Dioxide 26 mmol/L (22-30); Chloride 110 mmol/L (98-107); Creatine Kinase 32 U/L (30-135); Estimated CRCL calculation 17 ml/min; Estimated Glomerular Filt Rate 23; Glucose 78 mg/dL (65-110); Phosphorus 2.3 mg/dL (2.5-4.5); Potassium 3.6 mmol/L (3.4-5.0); Sodium 140 mmol/L (137-145)
[2022-07-12] MEDS: SODIUM BICARBONATE 8.4% 150 MEQ in WATER, STERILE FOR INJECTION 950 ML 75 MEQ IV CONT (06:11)
[2022-07-12] MEDS: ACETAMINOPHEN 325 MG TABLET 650 MG PO (06:14)
[2022-07-12 07:09] LABS: Anisocytosis 1+ (NORMAL); Hypochromasia 1+ (NORMAL); Platelet Estimate Adequate (Adequate); Poikilocytosis 1+ (NORMAL); Schistocytes None Seen (NORMAL)
--- NOTE | 2022-07-12 08:06 | PM.IMPN ---
Progress Note: A&P Assessment and Plan (1) Encounter for palliative care: Code(s): Z51.5 - Encounter for palliative care Status: Acute Assessment and Plan: I discussed the patient's current condition, medications, lab work and vitals with the patient's 3 daughters [id number] and via speaker phone. They reported the patient stated she did not want tube feeding or dialysis and wanted to be comfortable during her last hospital stay. We discussed continuing IV fluids, IV antibiotics, and trying to get the patient to take oral Dificid and seeing how the patient responded over the next 24 hours. We also discussed withdrawing above fluids and antibiotics and pursuing hospice. All three of the patient's daughters endorsed the patient would want to be comfortable and they would like to honor their mother's wishes. Care coordination consulted for hospice. DC IV fluids, IV meropenem, IV metronidazole, and oral medications. Start IV morphine 2 mg Q4 hours PRN pain or air hunger; lorazepam 0.5 mg IV Q4 hours PRN anxiety, agitation or restlessness; atropine SL drops Q1 hour PRN increased secretions (2) Sepsis: Qualifiers: Sepsis acute organ dysfunction status: with acute organ dysfunction Sepsis type: sepsis due to unspecified organism Severe sepsis acute organ dysfunction type: encephalopathy Severe sepsis shock status: without septic shock Qualified Code(s): A41.9 - Sepsis, unspecified organism; R65.20 - Severe sepsis without septic shock; G93.40 - Encephalopathy, unspecified Code(s): A41.9 - Sepsis, unspecified organism Status: Acute Assessment and Plan: Patient presented to the hospital and was noted to be tachycardic, BP 87/47, WBC 11.6-21.9, lactic acid 2.6, pancolitis evident on CT abdomen and pelvis and UA is concerning for UTI. Patient meets criteria for sepsis. Patient given approximately 3 L of IV fluids in the ED and continued on maintenance fluids Monitor hemodynamics Continue antibiotics for C diff colitis and UTI Repeat lactic acid 2.2; 07/11/22 lactic acid 1.4 Monitor CBC and temperature curve 07/11/22 WBC 26, up from 11 on admission. Urine culture with ESBL e.coli. Antibiotics changed. SMITH present. 07/12/22 WBC 24. patient with difficulty swallowing and unable to take dificid or nutrition. (3) C. difficile colitis: Code(s): A04.72 - Enterocolitis due to Clostridium difficile, not specified as recurrent Status: Acute Assessment and Plan: Patient presented to the emergency department for evaluation diarrhea x5 days. Patient has history of C diff colitis in April of this year and was treated with [address] abdomen and pelvis on admission showed pancolitis. C diff was positive Initiated dificid 200 mg p.o. b.i.d. times 10 days, 1st dose 07/09 at 10:00 p.m. Contact isolation Continue IV fluids and supplement electrolytes as needed Monitor intake and output 07/11/22 WBC 26 and patient with significant abd pain on exam. Unclear if worsening leukocytosis is from cdiff colitis versus ESBL UTI. Add Metronidazole 500 mg IV Q8 hours. As above. Patient not taking PO today. (4) Atrial fibrillation: Qualifiers: Atrial fibrillation type: persistent (not longstanding) Qualified Code(s): I48.19 - Other persistent atrial fibrillation Code(s): I48.91 - Unspecified atrial fibrillation Status: Acute Assessment and Plan: Patient reportedly diagnosed with AFib approximately 1 month ago. She is typically rate controlled off medications. Patient is noted to be in AFib with heart rate 100 to 120s, she has nonsustained heart rate up to 130s with activity. I suspect this may be secondary to sepsis. Monitor telemetry. Add p.r.n. metoprolol 5 mg IV q.6 hours for sustained heart rate greater than 130s. Monitor patient's volume status and prevent hyper or hypovolemia. Obtain patient's records from [facility] from most
[2022-07-12] MEDS: POTASSIUM CHLORIDE 20 MEQ TABLET.ER 40 MEQ PO (08:27)
[2022-07-12] MEDS: FERROUS SULFATE 324 MG TABLET PO (08:27)
[2022-07-12] MEDS: ATORVASTATIN 20 MG TABLET PO (08:28)
[2022-07-12] MEDS: CHOLECALCIFEROL 1,000 UNITS TABLET 1000 UNITS PO (08:28)
[2022-07-12] MEDS: CYANOCOBALAMIN 1,000 MCG TABLET 2000 MCG PO (08:28)
[2022-07-12] MEDS: ASCORBIC ACID 500 MG TABLET 1000 MG PO (08:28)
[2022-07-12] MEDS: CLOPIDOGREL BISULFATE 75 MG TABLET PO (08:28)
[2022-07-12] MEDS: APIXABAN 5 MG TABLET PO (08:28)
[2022-07-12] MEDS: ASPIRIN 81 MG ENTERIC TABLET PO (08:28)
[2022-07-12] MEDS: FIDAXOMICIN 200 MG TABLET PO (08:29)
[2022-07-12] MEDS: FAMOTIDINE 20 MG/2 ML VIAL IV PUSH (08:29)
[2022-07-12] MEDS: FLUTICASONE PROPIONATE 0.05% NA SPR 16 GM BTL (*BKC) 2 SPRAY NASAL (08:32)
[2022-07-12] MEDS: LIDOCAINE 5% PATCH 1 PATCH TOPICAL (08:34)
[2022-07-12] MEDS: DEXTROSE 5%/0.45% SOD CHL 1,000 ML 100 ML IV CONT (08:35)
--- NOTE | 2022-07-12 09:22 | PCSTNOTE ---
CRYSTAL GAZER spoke with HUNTER Ann, who stated patient is not responding much and is still inappropriate for Bedside Swallow Eval.
[2022-07-12] MEDS: MEROPENEM 1 GM in SODIUM CHLORIDE 0.9% IV 100 ML 200 ML IVPB (11:38)
--- NOTE | 2022-07-12 11:42 | P.PNNP_ITS ---
Progress Note: A&P Assessment and Plan (1) SMITH (acute kidney injury): Code(s): N17.9 - Acute kidney failure, unspecified Status: Acute Assessment and Plan: * per discussion with daughters, no reported history of renal insufficiency * however, given her age and vascular disease (CVA + hyperlipidemia + CHF), she probably has some CKD (even if her creatinine is normal at baseline) * multifactorial: * approximately 5 days of diarrhea * associated with poor oral intake * likely exacerbated by ongoing use of diuretic therapy (diamox and lasix) * also, contrast exposure of 07/09 (CT of abdomen) * relative hypotension * afib (?) * evalution to date: * CT of abdoemen with cortical thinning of kidneys * urine electrolytes look prerenal * urine eosinophils negative * CPK okay * holding diuretic therapy * agree ongoing IVFs * she remains at risk for RT/dialysis (but family reports patient would not want such an intervention done) * follow repeat labs and UOP (2) Sepsis: Qualifiers: Sepsis acute organ dysfunction status: with acute organ dysfunction Sepsis type: sepsis due to unspecified organism Severe sepsis acute organ dysfunction type: encephalopathy Severe sepsis shock status: without septic shock Qualified Code(s): A41.9 - Sepsis, unspecified organism; R65.20 - Severe sepsis without septic shock; G93.40 - Encephalopathy, unspecified Code(s): A41.9 - Sepsis, unspecified organism Status: Acute Assessment and Plan: * as noted on presentation -- tachycardia, hypotension, lactic acidosis, leukocytosis * sources felt to be #3 and #4 * better hemodynamics following IVF resuscitation * lactic acid downtrending * continue IVFs for now * continue antibiotic therapy * follow trend of hemodynamics (3) C. difficile colitis: Code(s): A04.72 - Enterocolitis due to Clostridium difficile, not specified as recurrent Status: Acute Assessment and Plan: * CT abdomen and pelvis on admission showed pancolitis * C diff toxin assay positive * initiated dificid with recent addition of metronidazole * contact isolation * supportive therapy (4) UTI (urinary tract infection): Code(s): N39.0 - Urinary tract infection, site not specified Status: Acute Assessment and Plan: * admission UA with 3+ leukocyte esterase, WBCs, 2+ bacteria in association with dysuria * urine culture with EBSL E.coli * follow blood cultures * on antibiotics (5) Atrial fibrillation: Qualifiers: Atrial fibrillation type: persistent (not longstanding) Qualified Code(s): I48.19 - Other persistent atrial fibrillation Code(s): I48.91 - Unspecified atrial fibrillation Status: Acute Assessment and Plan: * diagnosed about a month ago * continue rate control strategy * on anticoagulation * follow telemetry (6) Hypokalemia: Code(s): E87.6 - Hypokalemia Status: Acute Assessment and Plan: * resolved * follow trend of K+ levels (7) CHF (congestive heart failure): Code(s): I50.9 - Heart failure, unspecified Status: Acute Assessment and Plan: * recent hospitalization for this * records requested * volume status stable * follow respiratory status with IVFs Given ongoing issues with poor nutrition/poor oral intake and diminished urine output in the context of renal dysfunction; may need to discuss goals of therapy with family; she may need a feeding tube for nutritional support and medication
--- NOTE | 2022-07-12 11:42 | PM.PNNEP ---
Progress Note: A&P Assessment and Plan (1) SMITH (acute kidney injury): Code(s): N17.9 - Acute kidney failure, unspecified Status: Acute Assessment and Plan: per discussion with daughters, no reported history of renal insufficiency however, given her age and vascular disease (CVA + hyperlipidemia + CHF), she probably has some CKD (even if her creatinine is normal at baseline) multifactorial: approximately 5 days of diarrhea associated with poor oral intake likely exacerbated by ongoing use of diuretic therapy (diamox and lasix) also, contrast exposure of / (CT of abdomen) relative hypotension afib (?) evalution to date: CT of abdoemen with cortical thinning of kidneys urine electrolytes look prerenal urine eosinophils negative CPK okay holding diuretic therapy agree ongoing IVFs she remains at risk for RT/dialysis (but family reports patient would not want such an intervention done) follow repeat labs and UOP (2) Sepsis: Qualifiers: Sepsis acute organ dysfunction status: with acute organ dysfunction Sepsis type: sepsis due to unspecified organism Severe sepsis acute organ dysfunction type: encephalopathy Severe sepsis shock status: without septic shock Qualified Code(s): A41.9 - Sepsis, unspecified organism; R65.20 - Severe sepsis without septic shock; G93.40 - Encephalopathy, unspecified Code(s): A41.9 - Sepsis, unspecified organism Status: Acute Assessment and Plan: as noted on presentation -- tachycardia, hypotension, lactic acidosis, leukocytosis sources felt to be #3 and #4 better hemodynamics following IVF resuscitation lactic acid downtrending continue IVFs for now continue antibiotic therapy follow trend of hemodynamics (3) C. difficile colitis: Code(s): A04.72 - Enterocolitis due to Clostridium difficile, not specified as recurrent Status: Acute Assessment and Plan: CT abdomen and pelvis on admission showed pancolitis C diff toxin assay positive initiated dificid with recent addition of metronidazole contact isolation supportive therapy (4) UTI (urinary tract infection): Code(s): N39.0 - Urinary tract infection, site not specified Status: Acute Assessment and Plan: admission UA with 3+ leukocyte esterase, WBCs, 2+ bacteria in association with dysuria urine culture with EBSL E.coli follow blood cultures on antibiotics (5) Atrial fibrillation: Qualifiers: Atrial fibrillation type: persistent (not longstanding) Qualified Code(s): I48.19 - Other persistent atrial fibrillation Code(s): I48.91 - Unspecified atrial fibrillation Status: Acute Assessment and Plan: diagnosed about a month ago continue rate control strategy on anticoagulation follow telemetry (6) Hypokalemia: Code(s): E87.6 - Hypokalemia Status: Acute Assessment and Plan: resolved follow trend of K+ levels (7) CHF (congestive heart failure): Code(s): I50.9 - Heart failure, unspecified Status: Acute Assessment and Plan: recent hospitalization for this records requested volume status stable follow respiratory status with IVFs Given ongoing issues with poor nutrition/poor oral intake and diminished urine output in the context of renal dysfunction; may need to discuss goals of therapy with family; she may need a feeding tube for nutritional support and medication administration and possibly dialysis with her renal function continues to deteriorate. Will continue to follow. Subjective Date/time seen: 07/12/22 11:42 Interval history: Follow-up for acute kidney injury/acute renal failure. Remains lethargic/confused at this time; diminished urine output noted but renal function relatively stable (in the last 24 hours) with improvement in acidosis with bicarb gtt; still not eating and having issues with hypoglycemia so st
[2022-07-12] MEDS: MORPHINE SULFATE (*CRX) 2 MG/ML INJ IV PUSH (15:00)
--- NOTE | 2022-07-12 17:31 | PC.NURSE ---
transferred in to inpatient hospice with [facility] covering
[2022-07-16 14:16] LABS: Chloride Rand Ur <20 mmol/L (32-290); Creatinine Random Urine 143 mg/dL (20-275)
--- NOTE | 2022-07-18 17:51 | PM.DS ---
DS: Admitting Diagnosis Discharge Date 07/12/22 Admitting Diagnosis Enterocolitis due to Clostridium difficile, not specified as recurrent Atrial fibrillation, chronic?Acute kidney failure, unspecified Hypokalemia UTI (urinary tract infection) DS: Discharge Diagnosis Discharge Diagnosis (1) Encounter for palliative care: Code(s): Z51.5 - Encounter for palliative care Status: Acute Assessment and Plan: 07/12/22 I discussed the patient's current condition, medications, lab work and vitals with the patient's 3 daughters [id number] and via speaker phone. They reported the patient stated she did not want tube feeding or dialysis and wanted to be comfortable during her last hospital stay. We discussed continuing IV fluids, IV antibiotics, and trying to get the patient to take oral Dificid and seeing how the patient responded over the next 24 hours. We also discussed withdrawing above fluids and antibiotics and pursuing hospice. All three of the patient's daughters endorsed the patient would want to be comfortable and they would like to honor their mother's wishes. Care coordination consulted for hospice. DC IV fluids, IV meropenem, IV metronidazole, and oral medications. Started IV morphine 2 mg Q4 hours PRN pain or air hunger; lorazepam 0.5 mg IV Q4 hours PRN anxiety, agitation or restlessness; atropine SL drops Q1 hour PRN increased secretions (2) Sepsis: Qualifiers: Sepsis acute organ dysfunction status: with acute organ dysfunction Sepsis type: sepsis due to unspecified organism Severe sepsis acute organ dysfunction type: encephalopathy Severe sepsis shock status: without septic shock Qualified Code(s): A41.9 - Sepsis, unspecified organism; R65.20 - Severe sepsis without septic shock; G93.40 - Encephalopathy, unspecified Code(s): A41.9 - Sepsis, unspecified organism Status: Acute Assessment and Plan: Patient presented to the hospital and was noted to be tachycardic, BP 87/47, WBC 11.6-21.9, lactic acid 2.6, pancolitis evident on CT abdomen and pelvis and UA is concerning for UTI. Patient meets criteria for sepsis. Patient given approximately 3 L of IV fluids in the ED and continued on maintenance fluids Monitor hemodynamics Continue antibiotics for C diff colitis and UTI Repeat lactic acid 2.2; 07/11/22 lactic acid 1.4 Monitor CBC and temperature curve 07/11/22 WBC 26, up from 11 on admission. Urine culture with ESBL e.coli. Antibiotics changed. SMITH present. 07/12/22 WBC 24. patient with difficulty swallowing and unable to take dificid or nutrition. (3) C. difficile colitis: Code(s): A04.72 - Enterocolitis due to Clostridium difficile, not specified as recurrent Status: Acute Assessment and Plan: Patient presented to the emergency department for evaluation diarrhea x5 days. Patient has history of C diff colitis in April of this year and was treated with [address] abdomen and pelvis on admission showed pancolitis. C diff was positive Initiated dificid 200 mg p.o. b.i.d. times 10 days, 1st dose 07/09 at 10:00 p.m. Contact isolation Continue IV fluids and supplement electrolytes as needed Monitor intake and output 07/11/22 WBC 26 and patient with significant abd pain on exam. Unclear if worsening leukocytosis is from cdiff colitis versus ESBL UTI. Add Metronidazole 500 mg IV Q8 hours. 07/12/22 As above. Patient not taking PO today. (4) Atrial fibrillation: Qualifiers: Atrial fibrillation type: persistent (not longstanding) Qualified Code(s): I48.19 - Other persistent atrial fibrillation Code(s): I48.91 - Unspecified atrial fibrillation Status: Acute Assessment and Plan: Patient reportedly diagnosed with AFib approximately 1 month ago. She is typically rate controlled off medications. Patient is noted to be in AFib with heart rate 100 to 120s, she has nonsustained heart rate up to 130s with activity. I
== END 2022-07-12 17:14 | disposition hospice, home (50) | DRG 871 ==
LOC: ANHED 17:57 → ANH2MED 20:55
PROVIDERS: Internal Medicine Nephrology; Nurse Practitioner; Admitting Provider Chiropractor; Emergency Provider Emergency Medicine; PCP Internal Medicine; Visit Provider Nurse Practitioner Family
DX: A41.51 Sepsis due to Escherichia coli [E. coli] (principal); G93.41 Metabolic encephalopathy; A04.72 Enterocolitis due to Clostridium difficile, not specified as recurrent; N17.9 Acute kidney failure, unspecified; N39.0 Urinary tract infection, site not specified; I48.19 Other persistent atrial fibrillation; R65.20 Severe sepsis without septic shock; K42.9 Umbilical hernia without obstruction or gangrene; E87.6 Hypokalemia; I50.9 Heart failure, unspecified; K21.9 Gastro-esophageal reflux disease without esophagitis; E03.9 Hypothyroidism, unspecified; H81.10 Benign paroxysmal vertigo, unspecified ear; F41.8 Other specified anxiety disorders; Z51.5 Encounter for palliative care; Z66 Do not resuscitate; B96.20 Unspecified Escherichia coli [E. coli] as the cause of diseases classified elsewhere; Z88.5 Allergy status to narcotic agent; Z88.6 Allergy status to analgesic agent; Z86.73 Personal history of transient ischemic attack (TIA), and cerebral infarction without residual deficits; Z90.11 Acquired absence of right breast and nipple; Z96.653 Presence of artificial knee joint, bilateral
CPT/HCPCS: 36415; 36569; 36600; 71045; 74177; 80048; 80053; 81001; 81050; 82375; 82436; 82550; 82570; 82805; 83050; 83605; 83735; 83880; 84100; 84145; 84156; 84300; 84443; 84540; 85025; 85999; 86140; 87040; 87045; 87077; 87086; 87186; 87269; 87272; 87427; 87493; 89055; 93005; 96361; 96365; 96366; 99285; A9270; C1751; J0696; J1940; J2185; J2270; J3475; J3480; J7030; J7040; Q9967

== ENCOUNTER 2022-07-12 17:40 | HOS | payer OTHER, MEDICARE, MEDICAID, SELFPAY ==
--- NOTE | 2022-07-12 17:38 | PC.NURSE ---
pt transferred into inpatient hospice care followed by Kendy
[2022-07-12 18:03] VITALS: PULSE 104; RESP 22; O2SAT 94
[2022-07-12] MEDS: HYDROmorphone HCL/PF (*CRX) 50 MG in SODIUM CHLORIDE 0.9% IV 95 ML IV CONT (18:15)
[2022-07-12 19:46] VITALS: BMI 38.9
[2022-07-12 20:00] VITALS: O2SAT 94
--- NOTE | 2022-07-13 07:16 | PM.DS ---
DS: Admitting Diagnosis Discharge Date 07/12/2022 DS: Summary Time Spent with Patient Time attestation: Total time spent providing and/or coordinating discharge services: Discharge Plan Discharge Discharge Medications: No Action furosemide 40 mg tablet 40 mg PO BID latanoprost 0.005 % drops 1 drp EACH EYE HS ascorbic acid (vitamin C) 1,000 mg Tablet 1,000 mg PO DAILY acetaminophen 325 mg Tablet 650 mg PO Q8H PRN (Reason: Pain (Scale Score 1-3)) atorvastatin 20 mg tablet 20 mg PO DAILY polyethylene glycol 3350 17 gram Powder In Packet 17 g PO DAILY clonazepam 0.5 mg tablet 0.5 mg PO HS acetazolamide 250 mg Tablet 250 mg PO BID potassium chloride 10 mEq tablet extended release 10 meq PO DAILY clopidogrel 75 mg tablet 75 mg PO DAILY omeprazole 40 mg capsule,delayed release(DR/EC) 40 mg PO DAILY aspirin 81 mg tablet,delayed release (DR/EC) 81 mg PO DAILY levothyroxine 50 mcg tablet 50 mcg PO DAILY lidocaine [Lidoderm] 5 % Adhesive Patch,Medicated 1 patch TOPICAL DAILY Rx Instructions: leave on most painful area for up to 12 hrs docusate sodium [Stool Softener] 100 mg capsule 100 mg PO BID oxybutynin chloride 5 mg tablet 5 mg PO BID fluticasone propionate 50 mcg/actuation spray,suspension 2 spray INTRANASAL DAILY cholecalciferol (vitamin D3) [Vitamin D3] 25 mcg (1,000 unit) capsule 1,000 unit PO DAILY ferrous sulfate 324 mg (65 mg iron) Tablet,Delayed Release (Dr/Ec) 324 mg PO BID apixaban 5 mg Tablet 5 mg PO BID cyanocobalamin (vitamin B-12) 2,500 mcg tablet 2,000 mcg PO DAILY Date of admission: 07/12/22 17:40 Primary Care Provider: WayneEmerson Admitting Provider: Jennifer Bedoya Attending physician on admission: Jennifer Bedoya
[2022-07-13 08:00] VITALS: O2SAT 94
[2022-07-13 14:35] VITALS: BP 74/33; PULSE 136; RESP 4; TEMP 36.4; O2SAT 78
--- NOTE | 2022-07-13 14:47 | PM.IMHP ---
H&P: HPI History of Present Illness Date/Time: 07/13/22 14:47 Chief Complaint: unresponsive Narrative: 86 yo female admitted 07/14/2023 with sever sepsis secondary to c diff colitis and ESBL UTI. Was hypotensive and tachycardic on admission to ER. Treated with fidaxomycin and rocephin, fluid rescucitated. Rocephin changed toe imipenem when urine culture came back, [facility] Past Medical History Medical History Anemia Atrial fibrillation BPV (benign positional vertigo) Breast cancer CHF (congestive heart failure), NYHA class I Chronic GERD CVA (cerebral vascular accident) Depression with anxiety Hyperlipidemia Hypothyroidism Surgical History Surgical History H/O mastectomy right breast H/O: hysterectomy History of appendectomy History of bilateral knee replacement Hx of cataract surgery Hx of cholecystectomy Family History Family History Mother Hypertension Father Hypertension Sibling Hypertension Daughter No problems noted. Social History Social History (Updated 07/10/22 @ 02:34 by Karla Lafleur NP) Social History: The patient recently moved into [facility]. she is and he lives there at the half-way as well. She has had 6 children . 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, and [employer] code status dnr Smoking status: Former smoker Alcohol intake: never Substance use: never Lack of Transportation: No Lack of Food: Never True Current Housing: I Have Housing Concerned About Future Housing: No Difficulty Paying Gas/Electric Bills: No Difficulty Paying for Meds: No Currently Unemployed: No Education: Associate Degree Difficulty w/ Childcare or Family Care: No Spiritual care concerns: No Meds Home Medications and Allergies Home Medications Medication Instructions Recorded Confirmed Type acetaminophen 325 mg tablet 650 mg PO Q8H PRN Pain (Scale 07/09/22 07/09/22 History Score 1-3) acetazolamide 250 mg tablet 250 mg PO BID 07/09/22 07/09/22 History apixaban 5 mg tablet 5 mg PO BID 07/09/22 07/09/22 History ascorbic acid (vitamin C) 1,000 mg 1,000 mg PO DAILY 07/09/22 07/09/22 History tablet aspirin 81 mg tablet,delayed 81 mg PO DAILY 07/09/22 07/09/22 History release atorvastatin 20 mg tablet 20 mg PO DAILY 07/09/22 07/09/22 History cholecalciferol (vitamin D3) 25 1,000 unit PO DAILY 07/09/22 07/09/22 History mcg (1,000 unit) capsule (Vitamin D3) clonazepam 0.5 mg tablet 0.5 mg PO HS 07/09/22 07/09/22 History clopidogrel 75 mg tablet 75 mg PO DAILY 07/09/22 07/09/22 History cyanocobalamin (vitamin B-12) 2,000 mcg PO DAILY 07/09/22 07/09/22 History 2,500 mcg tablet docusate sodium 100 mg capsule 100 mg PO BID 07/09/22 07/09/22 History (Stool Softener) ferrous sulfate 324 mg (65 mg 324 mg PO BID 07/09/22 07/09/22 History iron) tablet,delayed release fluticasone propionate 50 2 spray intranasal DAILY 07/09/22 07/09/22 History mcg/actuation nasal spray,suspension furosemide 40 mg tablet 40 mg PO BID 07/09/22 07/09/22 History latanoprost 0.005 % eye drops 1 drp EACH EYE HS 07/09/22 07/09/22 History levothyroxine 50 mcg tablet 50 mcg PO DAILY 07/09/22 07/09/22 History lidocaine 5 % topical patch 1 patch topical DAILY 07/09/22 07/09/22 History (Lidoderm) omeprazole 40 mg capsule,delayed 40 mg PO DAILY 07/09/22 07/09/22 History release oxybutynin chloride 5 mg tablet 5 mg PO BID 07/09/22 07/09/22 History polyethylene glycol 3350 17 gram 17 g PO DAILY 07/09/22 07/09/22 History oral powder packet potassium chloride 10 mEq 10 meq PO DAILY 07/09/22 07/09/22 History tablet,extended release Allergies Allergy/AdvReac Type Severity Reacti
--- NOTE | 2022-07-13 14:55 | PM.IMHP ---
H&P: HPI History of Present Illness Date/Time: 07/13/22 14:55 Chief Complaint: 86 yo female admitted through ER on 07/09 where she presented with sever sepsis secondary to c diff colitis and ESBL UTI. treated with fidaxomicin and rocephin then imipenem. Also developed SMITH. She declined in spite of treatment and family opted for hospice care, knowing that their mom would not want dialysis. Review of Systems Review of Systems: ROS unobtainable: Yes unobtainable due to mental status PMFSH Past Medical History Medical History Anemia Atrial fibrillation BPV (benign positional vertigo) Breast cancer CHF (congestive heart failure), NYHA class I Chronic GERD CVA (cerebral vascular accident) Depression with anxiety Hyperlipidemia Hypothyroidism Surgical History Surgical History H/O mastectomy right breast H/O: hysterectomy History of appendectomy History of bilateral knee replacement Hx of cataract surgery Hx of cholecystectomy Family History Family History Mother Hypertension Father Hypertension Sibling Hypertension Daughter No problems noted. Social History Social History Social History: The patient recently moved into [facility]. she is and he lives there at the correction as well. She has had 6 children . 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, and [employer] code status dnr Smoking status: Former smoker Alcohol intake: never Substance use: never Lack of Transportation: No Lack of Food: Never True Current Housing: I Have Housing Concerned About Future Housing: No Difficulty Paying Gas/Electric Bills: No Difficulty Paying for Meds: No Currently Unemployed: No Education: Associate Degree Difficulty w/ Childcare or Family Care: No Spiritual care concerns: No Meds Home Medications and Allergies Home Medications Medication Instructions Recorded Confirmed Type acetaminophen 325 mg tablet 650 mg PO Q8H PRN Pain (Scale 07/09/22 07/09/22 History Score 1-3) acetazolamide 250 mg tablet 250 mg PO BID 07/09/22 07/09/22 History apixaban 5 mg tablet 5 mg PO BID 07/09/22 07/09/22 History ascorbic acid (vitamin C) 1,000 mg 1,000 mg PO DAILY 07/09/22 07/09/22 History tablet aspirin 81 mg tablet,delayed 81 mg PO DAILY 07/09/22 07/09/22 History release atorvastatin 20 mg tablet 20 mg PO DAILY 07/09/22 07/09/22 History cholecalciferol (vitamin D3) 25 1,000 unit PO DAILY 07/09/22 07/09/22 History mcg (1,000 unit) capsule (Vitamin D3) clonazepam 0.5 mg tablet 0.5 mg PO HS 07/09/22 07/09/22 History clopidogrel 75 mg tablet 75 mg PO DAILY 07/09/22 07/09/22 History cyanocobalamin (vitamin B-12) 2,000 mcg PO DAILY 07/09/22 07/09/22 History 2,500 mcg tablet docusate sodium 100 mg capsule 100 mg PO BID 07/09/22 07/09/22 History (Stool Softener) ferrous sulfate 324 mg (65 mg 324 mg PO BID 07/09/22 07/09/22 History iron) tablet,delayed release fluticasone propionate 50 2 spray intranasal DAILY 07/09/22 07/09/22 History mcg/actuation nasal spray,suspension furosemide 40 mg tablet 40 mg PO BID 07/09/22 07/09/22 History latanoprost 0.005 % eye drops 1 drp EACH EYE HS 07/09/22 07/09/22 History levothyroxine 50 mcg tablet 50 mcg PO DAILY 07/09/22 07/09/22 History lidocaine 5 % topical patch 1 patch topical DAILY 07/09/22 07/09/22 History (Lidoderm) omeprazole 40 mg capsule,delayed 40 mg PO DAILY 07/09/22 07/09/22 History release oxybutynin chloride 5 mg tablet 5 mg PO BID 07/09/22 07/09/22 History polyethylene glycol 3350 17 gram 17 g PO DAILY 07/09/22 07/09/22 History oral powder packet potassium chloride 10 mEq 10 meq PO
[2022-07-13] MEDS: HYDROmorphone HCL/PF (*CRX) 50 MG in SODIUM CHLORIDE 0.9% IV 95 ML IV CONT (18:10)
[2022-07-13 20:00] VITALS: O2SAT 78
[2022-07-13 20:41] VITALS: BP 104/28; PULSE 106; RESP 5; TEMP 36.7; O2SAT 77
--- NOTE | 2022-07-13 23:04 | PC.NURSE ---
TURNED PT PER FAMILY REQUEST. TURNED PT TO RIGHT SIDE
[2022-07-14 11:36] VITALS: BP 84/37; PULSE 103; RESP 4; TEMP 36.6; O2SAT 94
--- NOTE | 2022-07-14 13:39 | WPDPN ---
Progress Note: A&P Assessment and Plan (1) SMITH (acute kidney injury): Code(s): N17.9 - Acute kidney failure, unspecified Status: Acute (2) Sepsis: Qualifiers: Sepsis acute organ dysfunction status: with acute organ dysfunction Sepsis type: sepsis due to unspecified organism Severe sepsis acute organ dysfunction type: encephalopathy Severe sepsis shock status: without septic shock Qualified Code(s): A41.9 - Sepsis, unspecified organism; R65.20 - Severe sepsis without septic shock; G93.40 - Encephalopathy, unspecified Code(s): A41.9 - Sepsis, unspecified organism Status: Acute (3) C. difficile colitis: Code(s): A04.72 - Enterocolitis due to Clostridium difficile, not specified as recurrent Status: Acute (4) UTI (urinary tract infection): Code(s): N39.0 - Urinary tract infection, site not specified Status: Acute (5) Atrial fibrillation: Qualifiers: Atrial fibrillation type: persistent (not longstanding) Qualified Code(s): I48.19 - Other persistent atrial fibrillation Code(s): I48.91 - Unspecified atrial fibrillation Status: Acute (6) CHF (congestive heart failure): Code(s): I50.9 - Heart failure, unspecified Status: Acute (7) End of life care: Code(s): Z51.5 - Encounter for palliative care Status: Acute Assessment and Plan: Appears comfortable, with signs of immence/actively dying, including bedrest, oligo-anuria, nonresponsiveness, NPO, intermittent apneas. Extremities remain warm without mottling, no neck extension. Plan Continues Dilaudid 0.5 mg/hr continuous IV. prn Dilaudid, Compazine, Glycopyrrolate, Ativan available. Requires continued GIP status as pt too near for transfer, has ongoing continuous IV opioid. Time Spent With Patient Time: Daughter, grandson, two great-grandsons all present at room. No current needs of family voiced when inquired. end packer present on my arrival. Time with patient: 15 - 25 minutes Subjective Date/time seen: 07/14/22 13:39 Interval history: Pt is nonresponsive to examiner voice or physical exam. Review of Systems Review of Systems: Pt is Unable to provide due to medical condition. Exam Narrative: Nonresponsive supine in bed, Dilaudid continuous infusion ongoing. Const: General: comfortable and no acute distress HENMT: Other: nasolabial folds still visible Eyes: Other: closed, not disturbed, no stirring with voice/exam Neck: Other: non-extended Resp: Auscultation: crackles and wheezes Other: Slow resps, 4/min. Upper airway sounds present but not prominent. Coarse breath sds bilat. ant. Cardio: Rate: regular rate Rhythm: abnormal rhythm irregularly irregular Heart sounds: no rubs GI: GI Palp: Yes Soft to palpation and No Guarding due to palpation present (GI) Other: diminished bowel sounds, obese, no evident guarding though firm bilat LQ's Urinary Catheter: Urinary Catheter: other (Gann present, scant brown urine in bag) Skin: General skin exam: normal color, no rashes or lesions noted and erythema Other: extremities remain warm, no mottling, peripheral pulses palpable 4 extr. Extrem: General: normal to inspection Objective Data Vital Signs Vital Signs: Vital Signs - 24 hr 07/13/22 14:35 07/13/22 20:41 07/13/22 20:00 Temperature 36.4 C L 36.7 C Pulse Rate 136 H 106 H Respiratory Rate 4 L 5 L Blood Pressure 74/33 L 104/28 L Pulse Oximetry 78 L 77 L 78 L Oxygen Delivery Nasal Cannula Oxygen Flow Rate 3 07/14/22 08:15 07/14/22 11:36 Temperature 36.6 C Pulse Rate 103 H Respiratory Rate 4 L Blood Pressure 84/37 L Pulse Oximetry 94 Oxygen Delivery Nasal Cannula Oxygen Flow Rate 4 Intake/Output Intake/Output: Intake & Output 07/11/22 07/12/22 07/13/22 07/14/22 23:59 23:59 23:59 23:59 Intake Total 100 Output Total 110 Rao
[2022-07-14] MEDS: GLYCOPYRROLATE INJ (*SP) 0.2 MG/ML VIAL 0.1 MG IV PUSH (16:07)
[2022-07-14] MEDS: HYDROmorphone HCL/PF (*CRX) 50 MG in SODIUM CHLORIDE 0.9% IV 95 ML IV CONT (16:11)
[2022-07-14 20:01] VITALS: BP 94/40; PULSE 94; RESP 4; TEMP 36.5; O2SAT 70
--- NOTE | 2022-07-15 06:46 | WPDPN ---
Progress Note: A&P Assessment and Plan (1) Sepsis: Qualifiers: Sepsis acute organ dysfunction status: with acute organ dysfunction Sepsis type: sepsis due to unspecified organism Severe sepsis acute organ dysfunction type: encephalopathy Severe sepsis shock status: without septic shock Qualified Code(s): A41.9 - Sepsis, unspecified organism; R65.20 - Severe sepsis without septic shock; G93.40 - Encephalopathy, unspecified Code(s): A41.9 - Sepsis, unspecified organism Status: Acute Assessment and Plan: No new findings this am. End of life care as below. (2) End of life care: Code(s): Z51.5 - Encounter for palliative care Status: Acute Assessment and Plan: Appears comfortable, with signs of immence/actively dying, including bedrest, oligo-anuria, nonresponsiveness, NPO, intermittent apneas. Extremities remain warm without mottling, no neck extension. Plan End of life care. Remains comfortable with continuous Dilaudid IV. Required no prn Dilaudid bolus. Did receive prn Glycopyrrolate about 12 hours ago. Remains NPO, anuric, nonresponsive. No family present at time of exam this am, though conferred with overnight RN. Daily visits by hospice team ongoing. End of life signs progressing, would not transfer due to proximity to . Time Spent With Patient Time with patient: 15 - 25 minutes Subjective Date/time seen: 07/15/22 06:46 Interval history: (Does not rouse to voice or physical exam) Review of Systems Review of Systems: (pt can not provide due to medical condition. Staff report no family present overnight. Staff turned pt this am, no skin breakdown visible per staff.) Exam Narrative: Slow respirations, intermittent upper airway sounds audible. Const: General: comfortable and no acute distress HENMT: Other: NC O2 present. Loss of naso-labial fold noted. Eyes: General: appearance normal, both eyes and all related structures Other: eyes remain closed thru exam, not disturbed in interest of comfort Neck: Neck: No no JVD Thyroid: thyroid normal Lymphatic: lymphadenopathy not noted Other: no hyperextension Resp: Auscultation: no crackles, no rales, no rhonchi, no wheezes and diminished lung sounds Other: slow resps, nose breathing, mouth remains closed Cardio: Rhythm: abnormal rhythm irregularly irregular Heart sounds: Murmur heart sound present and no rubs Other: 2/6 LLSB GI: Inspection: distended GI Palp: Yes Soft to palpation, No Tenderness to palpation present (GI) and No Guarding due to palpation present (GI) Other: Rare high pitched BS present. Obese : Other: farias present, no new urine present in bag Skin: General skin exam: normal color and no rashes or lesions noted Lesions: no lesions noted Rashes: no rashes noted Wounds: wound noted Neuro: Other: nonresponsive to voice or exam, no grimace/grunt with respiration Extrem: General: normal to inspection, no edema and no pedal edema Objective Data Vital Signs Vital Signs: Vital Signs - 24 hr 07/14/22 08:15 07/14/22 11:36 07/14/22 20:01 Temperature 36.6 C 36.5 C Pulse Rate 103 H 94 Respiratory Rate 4 L 4 L Blood Pressure 84/37 L 94/40 L Pulse Oximetry 94 70 L Oxygen Delivery Nasal Cannula Oxygen Flow Rate 4 07/14/22 20:00 Temperature Pulse Rate Respiratory Rate Blood Pressure Pulse Oximetry Oxygen Delivery Nasal Cannula Oxygen Flow Rate 4 Intake/Output Intake/Output: Intake & Output 07/12/22 07/13/22 07/14/22 07/15/22 23:59 23:59 23:59 23:59 Intake Total 100 100 Output Total 110 Balance -10 100 Meds/Results Medications: Active Medications Generic Name Dose Route Start Last Admin Trade Name Freq PRN Reason Stop Dose Admin Artificial Tears 0 drop 07/12/22 18:00 Artificial Tears Ophth Soln 15 Ml Bottle EACH EYE Q12H PRN Dry Eye(s) Bisacodyl
[2022-07-15 08:00] VITALS: O2SAT 70
[2022-07-15] MEDS: GLYCOPYRROLATE INJ (*SP) 0.2 MG/ML VIAL 0.1 MG IV PUSH (11:06)
[2022-07-15 14:55] VITALS: BP 81/36; PULSE 106; RESP 4; TEMP 35.9
[2022-07-15] MEDS: HYDROmorphone HCL (*CRX) 4 MG TABLET 8 MG PO ×3 (16:01→20:27)
[2022-07-15 19:51] VITALS: BP 86/73; PULSE 46; RESP 4; TEMP 36.3
[2022-07-15 20:00] VITALS: O2SAT 70
[2022-07-15] MEDS: LORazepam INJ (*CRX) 2 MG/ML VIAL 1 MG IV PUSH (22:05)
[2022-07-15] MEDS: HYDROmorphone HCL INJ (*CRX) 1 MG/ML SYR 0.5 MG IV PUSH (22:11)
[2022-07-16] MEDS: HYDROmorphone HCL (*CRX) 4 MG TABLET 8 MG PO (00:50)
[2022-07-16] MEDS: GLYCOPYRROLATE INJ (*SP) 0.2 MG/ML VIAL 0.1 MG IV PUSH ×2 (01:05→05:29)
--- NOTE | 2022-07-16 01:07 | PC.NURSE ---
PT MOANING AND BREATHING IS GURGLING. PT NOT CALM OR COMFORTABLE APPEARING PREVIOUS NIGHTS. FAMILY AT BEDSIDE IS IN TEARS STATING THE DILAUDID DRIP SHOULD HAVE NEVER BEEN STOPPED. GAVE PT 0100 DOSE OF SCHEDULED PO DILAUDID FOLLOWED BY SARAHI TO HELP WITH SECRETIONS. CALLED AND LET MESSAGE WITH MARION MORALES. FAMILY MEMBER STATED THEY HAD REACHED OUT TO MARION AND GOT NO RESPONSE.
[2022-07-16] MEDS: LORazepam INJ (*CRX) 2 MG/ML VIAL 1 MG IV PUSH (01:40)
[2022-07-16] MEDS: HYDROmorphone HCL INJ (*CRX) 1 MG/ML SYR 0.5 MG IV PUSH (01:40)
[2022-07-16] MEDS: HYDROmorphone HCL INJ (*CRX) 1 MG/ML SYR IV PUSH (03:47)
[2022-07-16 03:52] VITALS: PULSE 46; RESP 4
[2022-07-16] MEDS: HYDROmorphone HCL/PF (*CRX) 50 MG in SODIUM CHLORIDE 0.9% IV 95 ML IV CONT (03:52)
--- NOTE | 2022-07-16 04:06 | PC.NURSE ---
MARION HADDAD VISITED PT AND HELPED GET NEW ORDERS. LEFT CONTACT INFORMATION FOR ANY FURTHER NEEDS [phone]
[2022-07-16 08:00] VITALS: O2SAT 90
[2022-07-16] MEDS: LORazepam INJ (*CRX) 2 MG/ML VIAL 0.5 MG IV PUSH ×2 (08:15→11:28)
[2022-07-16 08:22] VITALS: BP 78/24; PULSE 69; RESP 7; TEMP 36.8; O2SAT 90
--- NOTE | 2022-07-16 09:06 | WPDPN ---
Progress Note: A&P Assessment and Plan (1) Sepsis: Qualifiers: Sepsis type: sepsis due to unspecified organism Sepsis acute organ dysfunction status: with acute organ dysfunction Severe sepsis acute organ dysfunction type: encephalopathy Severe sepsis shock status: without septic shock Qualified Code(s): A41.9 - Sepsis, unspecified organism; R65.20 - Severe sepsis without septic shock; G93.40 - Encephalopathy, unspecified Code(s): A41.9 - Sepsis, unspecified organism Status: Acute Assessment and Plan: No new findings this am. End of life care as below. (2) End of life care: Code(s): Z51.5 - Encounter for palliative care Status: Acute Assessment and Plan: Appears comfortable on dilaudid drip with prn ativan. No urine output. Failed trial of po dilaudid. Time Spent With Patient Time with patient: 15 - 25 minutes Subjective Date/time seen: 07/16/22 09:06 Interval history: Patient was switched from IV dilaudid to po yesterday in anticipation of sending her home. Overnight she became obviously more restless and uncomfortable, so IV dilaudid drip was restarted. This morning she is much more comfortable. Her daughter is at the bedside and was there all night. She got robinul IV a coupld of hours ado and was getting IV ativan at the time of my visit for some restlessness. Review of Systems Review of Systems: Patient is unable to provide. Daughter states she mostly has been comfortable since restarting the IV dilaudid. Still has some moaning with exhalation at times. Exam Narrative: Not responsive. Const: General: comfortable, no acute distress and patient obtunded HENMT: Head: normal to inspection Resp: Effort & Inspection: grunting (at times) Auscultation: other (coarse upper airways) Cardio: Rate: tachycardic (rate 120) Rhythm: abnormal rhythm irregularly irregular Peripheral pulses: radial pulses present and dorsalis pedis present GI: GI Palp: Yes Soft to palpation Auscultation: Hypoactive bowel sounds present Urinary Catheter: Urinary Catheter: urine dark (scant very dark urine in farias bag, no output for 3 days.) Skin: General skin exam: normal color Objective Data Vital Signs Vital Signs: Vital Signs - 24 hr 07/15/22 14:55 07/15/22 19:51 07/15/22 20:00 Temperature 35.9 C L 36.3 C L Pulse Rate 106 H 46 L Respiratory Rate 4 L 4 L Blood Pressure 81/36 L 86/73 L Pulse Oximetry 70 L Oxygen Delivery Nasal Cannula Oxygen Flow Rate 4 07/16/22 03:52 07/16/22 08:22 Temperature 36.8 C Pulse Rate 46 L 69 Respiratory Rate 4 L 7 L Blood Pressure 78/24 L Pulse Oximetry 90 Oxygen Delivery Oxygen Flow Rate Intake/Output Intake/Output: Intake & Output 07/13/22 07/14/22 07/15/22 07/16/22 23:59 23:59 23:59 23:59 Intake Total 100 100 Output Total 110 Balance -10 100 Meds/Results Medications: Active Medications Generic Name Dose Route Start Last Admin Trade Name Freq PRN Reason Stop Dose Admin Artificial Tears 0 drop 07/12/22 18:00 Artificial Tears Ophth Soln 15 Ml Bottle EACH EYE Q12H PRN Dry Eye(s) Bisacodyl 10 mg 07/12/22 18:00 Bisacodyl 10 Mg Suppository RECTAL DAILY PRN Constipation Glycopyrrolate 0.1 mg 07/12/22 18:00 07/16/22 05:29 Glycopyrrolate Inj (*Sp) 0.2 Mg/Ml Vial IV PUSH 0.1 mg Q4H PRN Administration secretions Hydromorphone HCl 0.5 mg 07/12/22 17:57 07/16/22 01:40 Hydromorphone Hcl Inj (*Crx) 1 Mg/Ml Syr IV PUSH 0.5 mg Q2H PRN Administration SEVERE PAIN Hydromorphone HCl 50 mg/ 100 mls @ 1 mls/hr 07/16/22 03:35 07/16/22 03:52 Sodium Chloride IV CONT 0.5 mg/hr .Q24H ORALIA 1 mls/hr Administration 0.5 MG/HR Lorazepam 0.5 mg 07/16/22 03:37 07/16/22 08:15 Lorazepam Inj (*Crx) 2 Mg/Ml Vial IV PUSH 0.5 mg Q2H PRN Administration Anxiety Ondansetron HCl 4 mg 07/15/22 15:05 Ondansetron Hc
[2022-07-16 21:17] VITALS: BP 95/42; PULSE 120; RESP 5; TEMP 36.6; O2SAT 100
[2022-07-17] MEDS: HYDROmorphone HCL/PF (*CRX) 50 MG in SODIUM CHLORIDE 0.9% IV 95 ML IV CONT (07:21)
[2022-07-17] MEDS: GLYCOPYRROLATE INJ (*SP) 0.2 MG/ML VIAL 0.1 MG IV PUSH ×2 (08:26→16:53)
[2022-07-17 11:10] VITALS: BP 103/88; PULSE 115; RESP 6; TEMP 35.9; O2SAT 70
[2022-07-17 19:59] VITALS: BP 85/41; PULSE 97; RESP 8; TEMP 35.8; O2SAT 73
[2022-07-17 20:00] VITALS: PULSE 97; RESP 8; O2SAT 73
--- NOTE | 2022-07-17 20:42 | P.PN_ITS ---
Subjective Date/time seen: 07/17/22 09:55 Review of Systems Review of Systems: Upon my arrival pt was unresponsive to voice or tactile stimuli. Absent bilateral radial pulses. Congested, did use intermittent suction briefly. No mottling noted. Gann catheter intact and draining minimal urine. Pt appears very comfortable on continuous Dilaudid IV infusion (0.5 mg/hr). Pt still has positive bowel sounds. Heart rhythm irregular. No edema noted. Daughter Marcie at bedside, coping well and very pleased with [facility] staff. Pt's respirations 10 with 3-5 seconds of apnea. No wounds. Continue to monitor. Objective Data Vital Signs Vital Signs: Vital Signs - 24 hr 07/16/22 21:17 07/17/22 11:10 07/17/22 19:59 Temperature 36.6 C 35.9 C L 35.8 C L Pulse Rate 120 H 115 H 97 Respiratory Rate 5 L 6 L 8 L Blood Pressure 95/42 L 103/88 85/41 L Pulse Oximetry 100 70 L 73 L Intake/Output Intake/Output: Intake & Output 07/14/22 07/15/22 07/16/22 07/17/22 23:59 23:59 23:59 23:59 Intake Total 100 45 Balance 100 45 Meds/Results Medications: Active Medications Generic Name Dose Route Start Last Admin Trade Name Freq PRN Reason Stop Dose Admin Artificial Tears 0 drop 07/12/22 18:00 Artificial Tears Ophth Soln 15 Ml Bottle EACH EYE Q12H PRN Dry Eye(s) Bisacodyl 10 mg 07/12/22 18:00 Bisacodyl 10 Mg Suppository RECTAL DAILY PRN Constipation Glycopyrrolate 0.1 mg 07/12/22 18:00 07/17/22 16:53 Glycopyrrolate Inj (*Sp) 0.2 Mg/Ml Vial IV PUSH 0.1 mg Q4H PRN Administration secretions Hydromorphone HCl 0.5 mg 07/12/22 17:57 07/16/22 01:40 Hydromorphone Hcl Inj (*Crx) 1 Mg/Ml Syr IV PUSH 0.5 mg Q2H PRN Administration SEVERE PAIN Hydromorphone HCl 50 mg/ 100 mls @ 1 mls/hr 07/16/22 03:35 07/17/22 07:21 Sodium Chloride IV CONT 0.5 mg/hr .Q24H ORALIA 1 mls/hr Administration 0.5 MG/HR Lorazepam 0.5 mg 07/16/22 03:37 07/16/22 11:28 Lorazepam Inj (*Crx) 2 Mg/Ml Vial IV PUSH 0.5 mg Q2H PRN Administration Anxiety Ondansetron HCl 4 mg 07/15/22 15:05 Ondansetron Hcl Odt 4 Mg Tablet PO Q4H PRN Nausea And Vomiting
[2022-07-18] MEDS: HYDROmorphone HCL/PF (*CRX) 50 MG in SODIUM CHLORIDE 0.9% IV 95 ML IV CONT (07:48)
[2022-07-18 10:00] VITALS: BP 105/61; PULSE 106; RESP 5; TEMP 36.4
[2022-07-18] MEDS: ARTIFICIAL TEARS OPHTH SOLN 15 ML BOTTLE EACH EYE (14:29)
--- NOTE | 2022-07-18 17:46 | WPDPN ---
Subjective Date/time seen: 07/18/22 09:40 Pt appears very comfortable on continuous IV Dilaudid at 0.5 mg/hr. No family present during visit. Minimal dark jennifer urine present in farias bag. No mottling noted. No wounds. No radial pulses noted. Lungs diminished and slightly coarse, no need for suction. Remains unresponsive. Called and updated daughter, Marcie, who was thankful for the update. Continue to monitor. Objective Data Vital Signs Vital Signs: Vital Signs - 24 hr 07/17/22 19:59 07/17/22 20:00 07/18/22 10:00 Temperature 35.8 C L 36.4 C L Pulse Rate 97 97 106 H Respiratory Rate 8 L 8 L 5 L Blood Pressure 85/41 L 105/61 Pulse Oximetry 73 L 73 L Oxygen Delivery Nasal Cannula Oxygen Flow Rate 4 Intake/Output Intake/Output: Intake & Output 07/15/22 07/16/22 07/17/22 07/18/22 23:59 23:59 23:59 23:59 Intake Total 45 29.4 Balance 45 29.4 Meds/Results Medications: Active Medications Generic Name Dose Route Start Last Admin Trade Name Freq PRN Reason Stop Dose Admin Artificial Tears 0 drop 07/12/22 18:00 07/18/22 14:29 Artificial Tears Ophth Soln 15 Ml Bottle EACH EYE 1 drop Q12H PRN Administration Dry Eye(s) Bisacodyl 10 mg 07/12/22 18:00 Bisacodyl 10 Mg Suppository RECTAL DAILY PRN Constipation Glycopyrrolate 0.1 mg 07/12/22 18:00 07/17/22 16:53 Glycopyrrolate Inj (*Sp) 0.2 Mg/Ml Vial IV PUSH 0.1 mg Q4H PRN Administration secretions Hydromorphone HCl 0.5 mg 07/12/22 17:57 07/16/22 01:40 Hydromorphone Hcl Inj (*Crx) 1 Mg/Ml Syr IV PUSH 0.5 mg Q2H PRN Administration SEVERE PAIN Hydromorphone HCl 50 mg/ 100 mls @ 1 mls/hr 07/16/22 03:35 07/18/22 07:48 Sodium Chloride IV CONT 0.5 mg/hr .Q24H ORALIA 1 mls/hr Administration 0.5 MG/HR Lorazepam 0.5 mg 07/16/22 03:37 07/16/22 11:28 Lorazepam Inj (*Crx) 2 Mg/Ml Vial IV PUSH 0.5 mg Q2H PRN Administration Anxiety Ondansetron HCl 4 mg 07/15/22 15:05 Ondansetron Hcl Odt 4 Mg Tablet PO Q4H PRN Nausea And Vomiting
[2022-07-18 20:30] VITALS: BP 94/44; PULSE 103; RESP 7; TEMP 36.3; O2SAT 99
[2022-07-18 21:45] VITALS: O2SAT 99
[2022-07-19] MEDS: HYDROmorphone HCL/PF (*CRX) 50 MG in SODIUM CHLORIDE 0.9% IV 95 ML IV CONT (07:16)
[2022-07-19 09:30] VITALS: BP 89/36; PULSE 95; RESP 6; TEMP 36.6; O2SAT 90
[2022-07-19] MEDS: GLYCOPYRROLATE INJ (*SP) 0.2 MG/ML VIAL 0.1 MG IV PUSH (10:15)
--- NOTE | 2022-07-19 12:20 | WPDPN ---
Progress Note: A&P Assessment and Plan (1) Sepsis: Qualifiers: Sepsis type: sepsis due to unspecified organism Sepsis acute organ dysfunction status: with acute organ dysfunction Severe sepsis acute organ dysfunction type: encephalopathy Severe sepsis shock status: without septic shock Qualified Code(s): A41.9 - Sepsis, unspecified organism; R65.20 - Severe sepsis without septic shock; G93.40 - Encephalopathy, unspecified Code(s): A41.9 - Sepsis, unspecified organism Status: Acute Assessment and Plan: No po intake for 7 days, minimal urine output. Daughter at bedside. (2) End of life care: Code(s): Z51.5 - Encounter for palliative care Status: Acute Assessment and Plan: Appears comfortable on dilaudid drip with prn ativan. No urine output. Failed trial of po dilaudid last week (as evidenced by grimacing, groaning, restlessness), is doing well with the IV. Avoiding morphine because of SMITH. I do not believe we can make her comfortable on po medications at this time. Daughter at bedside and updated. Subjective Date/time seen: 07/19/22 12:20 Interval history: 86 year old female in [facility] hospice. Comfortable on the dilaudid drip per her daughter. Has had glycopyrrolate IV for increased secretions. Review of Systems Review of Systems: unable to obtain from patient, but daughter reports that the patient appears comfortable. No stool. Exam Const: General: comfortable and patient obtunded Resp: Effort & Inspection: grunting (occasionally) and other (gurgling at times) Cardio: Rate: tachycardic Rhythm: abnormal rhythm (irregular) Peripheral pulses: radial pulses present Other: 2+ edema to feet and ankles bilaterally GI: Auscultation: Hypoactive bowel sounds present Objective Data Vital Signs Vital Signs: Vital Signs - 24 hr 07/18/22 20:30 07/18/22 21:45 07/19/22 09:25 Temperature 36.3 C L Pulse Rate 103 H Respiratory Rate 7 L Blood Pressure 94/44 L Pulse Oximetry 99 99 Oxygen Delivery Nasal Cannula Nasal Cannula Oxygen Flow Rate 4 4 07/19/22 09:30 Temperature 36.6 C Pulse Rate 95 Respiratory Rate 6 L Blood Pressure 89/36 L Pulse Oximetry 90 Oxygen Delivery Oxygen Flow Rate Intake/Output Intake/Output: Intake & Output 0607/17/22 07/18/22 07/19/22 23:59 23:59 23:59 23:59 Intake Total 45 29.4 25 Balance 45 29.4 25 Meds/Results Medications: Active Medications Generic Name Dose Route Start Last Admin Trade Name Kiranq PRN Reason Stop Dose Admin Artificial Tears 0 drop 07/12/22 18:00 07/18/22 14:29 Artificial Tears Ophth Soln 15 Ml Bottle EACH EYE 1 drop Q12H PRN Administration Dry Eye(s) Bisacodyl 10 mg 07/12/22 18:00 Bisacodyl 10 Mg Suppository RECTAL DAILY PRN Constipation Glycopyrrolate 0.1 mg 07/12/22 18:00 07/19/22 10:15 Glycopyrrolate Inj (*Sp) 0.2 Mg/Ml Vial IV PUSH 0.1 mg Q4H PRN Administration secretions Hydromorphone HCl 0.5 mg 07/12/22 17:57 07/16/22 01:40 Hydromorphone Hcl Inj (*Crx) 1 Mg/Ml Syr IV PUSH 0.5 mg Q2H PRN Administration SEVERE PAIN Hydromorphone HCl 50 mg/ 100 mls @ 1 mls/hr 07/16/22 03:35 07/19/22 07:16 Sodium Chloride IV CONT 0.5 mg/hr .Q24H ORALIA 1 mls/hr Administration 0.5 MG/HR Lorazepam 0.5 mg 07/16/22 03:37 07/16/22 11:28 Lorazepam Inj (*Crx) 2 Mg/Ml Vial IV PUSH 0.5 mg Q2H PRN Administration Anxiety Ondansetron HCl 4 mg 07/15/22 15:05 Ondansetron Hcl Odt 4 Mg Tablet PO Q4H PRN Nausea And Vomiting
[2022-07-19 20:43] VITALS: BP 104/53; PULSE 96; RESP 12; TEMP 36; O2SAT 96
[2022-07-20] MEDS: HYDROmorphone HCL/PF (*CRX) 50 MG in SODIUM CHLORIDE 0.9% IV 95 ML IV CONT (06:21)
[2022-07-20 07:54] VITALS: BP 105/57; PULSE 110; RESP 14; TEMP 37
[2022-07-20] MEDS: GLYCOPYRROLATE INJ (*SP) 0.2 MG/ML VIAL 0.1 MG IV PUSH ×3 (08:46→18:08)
[2022-07-20] MEDS: ARTIFICIAL TEARS OPHTH SOLN 15 ML BOTTLE EACH EYE (08:52)
[2022-07-20] MEDS: LORazepam INJ (*CRX) 2 MG/ML VIAL 0.5 MG IV PUSH ×2 (09:01→13:40)
[2022-07-20] MEDS: HYDROmorphone HCL INJ (*CRX) 1 MG/ML SYR 0.5 MG IV PUSH (13:51)
[2022-07-20 19:00] VITALS: BP 63/36; PULSE 85; RESP 14; TEMP 35.7
[2022-07-20 20:00] VITALS: PULSE 85; RESP 14; O2SAT 96
--- NOTE | 2022-07-20 23:57 | P.PNIM_ITS ---
Progress Note: A&P Assessment and Plan (1) Encounter for palliative care: Code(s): Z51.5 - Encounter for palliative care Status: Acute Assessment and Plan: * Meets inpatient hospice criteria due to requiring continuous IV morphine for analgesia. * Continue current regimen (2) CHF (congestive heart failure): Code(s): I50.9 - Heart failure, unspecified Status: Acute (3) SMITH (acute kidney injury): Code(s): N17.9 - Acute kidney failure, unspecified Status: Acute Subjective Date/time seen: 07/20/22 23:57 Interval history: Telehealth. Restless this afternoon. Resting comfortably after hydromorphone increase. Review of Systems Review of Systems: ROS unobtainable: Yes unobtainable due to medical condition Exam Narrative: Resting comfortably Objective Data Vital Signs Vital Signs: Vital Signs - 24 hr 07/20/22 07:54 07/20/22 19:00 07/20/22 20:00 Temperature 98.6 F 96.3 F L Pulse Rate 110 H 85 85 Respiratory Rate 14 14 14 Blood Pressure 105/57 L 63/36 L Pulse Oximetry 96 Oxygen Delivery Nasal Cannula Oxygen Flow Rate 4 Intake/Output Intake/Output: Intake & Output 07/17/22 07/18/22 07/19/22 07/20/22 23:59 23:59 23:59 23:59 Intake Total 45 29.4 25 15 Output Total 30 50 Balance 45 29.4 -5 -35 Meds/Results Medications: Active Medications Generic Name Dose Route Start Last Admin Trade Name Freq PRN Reason Stop Dose Admin Artificial Tears 0 drop 07/12/22 18:00 07/20/22 08:52 Artificial Tears Ophth Soln 15 Ml Bottle EACH EYE 1 drop Q12H PRN Administration Dry Eye(s) Bisacodyl 10 mg 07/12/22 18:00 Bisacodyl 10 Mg Suppository RECTAL DAILY PRN Constipation Glycopyrrolate 0.1 mg 07/12/22 18:00 07/20/22 18:08 Glycopyrrolate Inj (*Sp) 0.2 Mg/Ml Vial IV PUSH 0.1 mg Q4H PRN Administration secretions Hydromorphone HCl 1 mg 07/20/22 14:51 Hydromorphone Hcl Inj (*Crx) 1 Mg/Ml Syr IV PUSH Q2H PRN SEVERE PAIN Hydromorphone HCl 50 mg/ 100 mls @ 2 mls/hr 07/16/22 03:35 07/20/22 15:00 Sodium Chloride IV CONT 1 mg/hr .Q24H ORALIA 2 mls/hr Infusion 1 MG/HR Lorazepam 1 mg 07/20/22 14:51 Lorazepam Inj (*Crx) 2 Mg/Ml Vial IV PUSH Q2H PRN Anxiety Ondansetron HCl 4 mg 07/15/22 15:05 Ondansetron Hcl Odt 4 Mg Tablet PO Q4H PRN Nausea And Vomiting
--- NOTE | 2022-07-21 19:38 | PC.NURSE ---
Paper documentation exists on this patient due to [employer] [facility] downtime on 07/21/22 from 0030 to 1900.
--- NOTE | 2022-07-24 14:09 | PM.DDS ---
Discharge Summary Date and Time Date of : 07/21/22 Time of : 04:33 Provider Pronounced By: Briana Boswell RN Probable Cause of Probable Cause of : Sepsis due to ESBL e coli uti and c diff clitis with SMITH Summary Hospital Course: Admitted to inpatient hospice service for control of pain. Medications titrated to comfort. Mrs. Hamilton peacefully. Additional Data Confirmation of as documented by pronouncing clinician: Pupillary Reflex, Palpable Pulses, Response to Stimuli, Heart Tones and Breath Sounds Name of Provider Notified: Dr. 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
== END 2022-07-21 20:00 | disposition expired | DRG 872 ==
PROVIDERS: Admitting Provider Internal Medicine Adolescent Medicine; PCP Internal Medicine; Visit Provider Internal Medicine
DX: A41.9 Sepsis, unspecified organism (principal); A04.72 Enterocolitis due to Clostridium difficile, not specified as recurrent; N17.9 Acute kidney failure, unspecified; G93.40 Encephalopathy, unspecified; Z51.5 Encounter for palliative care; R65.20 Severe sepsis without septic shock; Z96.653 Presence of artificial knee joint, bilateral; D64.9 Anemia, unspecified; I48.91 Unspecified atrial fibrillation; I50.9 Heart failure, unspecified; K21.9 Gastro-esophageal reflux disease without esophagitis; F41.8 Other specified anxiety disorders; E78.5 Hyperlipidemia, unspecified; E03.9 Hypothyroidism, unspecified; Z90.49 Acquired absence of other specified parts of digestive tract; Z90.710 Acquired absence of both cervix and uterus; Z85.3 Personal history of malignant neoplasm of breast; Z87.891 Personal history of nicotine dependence; Z86.73 Personal history of transient ischemic attack (TIA), and cerebral infarction without residual deficits; Z66 Do not resuscitate
CPT/HCPCS: A9270; J1170; J2060